=== PATIENT | male | born 1960 | race Caucasian/White ===

== ENCOUNTER 2018-01-23 13:47 | Emergency (ER) | payer OTHER ==
[2018-01-23] MEDS ORDERED: ALBUTEROL 2.5 MG/3 ML NEB SOL ONE (15:32)
[2018-01-23] MEDS ORDERED: IPRATROPIUM BROM 0.5MG/2.5ML ONE (15:32)
[2018-01-23] MEDS ORDERED: predniSONE 20 MG TAB ONE (15:33)
--- NOTE | 2018-01-23 16:11 | ER ---
Nurse's Notes [facility] Name: Dread Rose Age: 57 yrs Sex: Male : 1960 Arrival Date: 01/23/2018 Time: 13:54 Bed 27 Private MD: Diagnosis: Chronic obstructive pulmonary disease, unspecified Presentation: 01/23 13:58 Presenting complaint: Patient states: "I have COPD and really bad scoliosis so I always hb feel short of breath, I do not feel any worse than I normally do, but my family made me come because they think I look half .". Transition of care: patient was not received from another setting of care. Onset of symptoms is unknown. Care prior to arrival: None. 13:58 Method Of Arrival: Ambulatory hb 13:58 Acuity: MORELIA 3 hb 15:02 Initial Sepsis Screen: Does the patient meet any 2 criteria? No. Patient's initial kr2 sepsis screen is negative. Does the patient have a suspected source of infection? No. Patient's initial sepsis screen is negative. Triage Assessment: 15:05 General: Appears in no apparent distress. comfortable, well developed, well nourished, kr2 Behavior is calm, cooperative, appropriate for age. Respiratory: Reports shortness of breath on exertion Onset: The symptoms/episode began/occurred at an unknown time. the patient has mild shortness of breath. Historical: - Allergies: 14:00 No Known Drug Allergies; hb - PMHx: 14:00 COPD; scoliosis; hb - PSHx: 14:00 back surgery; neck surgery; splenectomy; hb - Immunization history:: Adult Immunizations up to date. - Social history:: Smoking status: Patient uses tobacco products, smokes one-half pack cigarettes per day. Screenin:05 Abuse screen: Denies threats or abuse. Denies injuries from another. Nutritional kr2 screening: No deficits noted. Tuberculosis screening: No symptoms or risk factors identified. Fall Risk None identified. Assessment: 15:05 General: Appears in no apparent distress. comfortable, unkempt, well developed, well kr2 nourished, Behavior is calm, cooperative, appropriate for age. Pain: Denies pain. Neuro: Level of Consciousness is awake, alert, obeys commands, Oriented to person, place, time, situation, Appropriate for age. Cardiovascular: Rhythm is regular. Respiratory: Airway is patent Respiratory effort is even, unlabored, Respiratory pattern is regular, symmetrical, Breath sounds are clear bilaterally. Parent/caregiver reports the patient having shortness of breath on exertion that "is not out of the ordinary, "I have COPD". GI: Abdomen is flat, non-distended, Bowel sounds present X 4 quads. EENT: Oral mucosa is moist. Derm: Skin is intact, Skin is pink, warm \\T\\ dry. Musculoskeletal: Circulation, motion, and sensation intact. Vital Signs: 13:56 BP 121 / 85; Pulse 88; Resp 18; Temp 97.4(TE); Pulse Ox 96% on R/A; Weight 68.04 kg; hb Height 6 ft. (182.88 cm); Pain 10/10; 16:23 BP 114 / 75; Pulse 75; Resp 18; Pulse Ox 96% on R/A; kr2 13:56 Body Mass Index 20.34 (68.04 kg, 182.88 cm) hb ED Course: 13:54 Patient arrived in ED. na 13:59 Triage completed. hb 14:00 Arm band placed on left wrist. hb 15:02 Janet Martinez, LI is Primary Nurse. kr2 15:03 Gianni Ni NP is PHCP. pm1 15:03 Nash Stanley MD is Attending Physician. pm1 15:05 Patient has correct armband on for positive identification. Bed in low position. Call kr2 light in reach. Side rails up X 1. Pulse ox on. NIBP on. Door closed. Warm blanket given. Head of bed elevated. 16:21 No provider procedures requiring assistance completed. Patient did not have IV access kr2 during this emergency room visit. Administered Medications: 15:35 Drug: Albuterol 2.5 mg Route: Inhalation; kr2 16:24 Follow up: Response: No adverse reaction; Marked relief of symptoms kr2 15:35 Drug: AtroVENT Aerosol 0.5 mg Route: Inhalation; kr2 16:24 Follow up: Response: No adverse reaction; Marked relief of symptoms kr2 15:35 Drug: predniSONE 60 mg Route: PO; kr2 16:24 Follow up: Response: No adverse reaction kr2 Outcome: 16:10 Discharge ordered by . pm1 16:22 Discharged to home ambulatory. kr2 16:22 Condition: stable 16:22 Discharge instructions given to patient, family, Instructed on discharge instructions, follow up and referral plans. medication usage, Demonstrated understanding of instructions, follow-up care, medications, Prescriptions given X 2. 16:24 Patient left the ED. kr2 Signatures: Ruth Perez Patrick, NP TRANSFER MACHINE OPERATOR pm1 Toña Little, RN RN Janet Martinez RN RN kr2
--- NOTE | 2018-01-23 16:11 | EDPHYS ---
Physician Documentation [facility] Name: Dread Rose Age: 57 yrs Sex: Male : 1960 Arrival Date: 01/23/2018 Time: 13:54 Bed 27 Private MD: ED Physician Nash Stanley HPI: 01/23 16:00 This 57 yrs old Male presents to ER via Ambulatory with complaints of pm1 Shortness Of Breath. 16:00 Patient is here for medications refills. He has a history of COPD. Patient is not pm1 having any shortness of breath that is any different than his baseline. No chest pain. No productive cough. No fever. He came here to the ER because his family wanted him to be evaluated for his COPD because he has not gone to a doctor in multiple years. He has not taken any medications for the past 4 years. He used to take albuterol, Advair, hydrocodone, meloxicam, dicyclomine, and Elavil.. Historical: - Allergies: 14:00 No Known Drug Allergies; hb - PMHx: 14:00 COPD; scoliosis; hb - PSHx: 14:00 back surgery; neck surgery; splenectomy; hb - Immunization history:: Adult Immunizations up to date. - Social history:: Smoking status: Patient uses tobacco products, smokes one-half pack cigarettes per day. ROS: 16:00 Constitutional: Negative for fever, chills, and weight loss, Eyes: Negative for injury, pm1 pain, redness, and discharge, ENT: Negative for injury, pain, and discharge, Neck: Negative for injury, pain, and swelling, Cardiovascular: Negative for chest pain, palpitations, and edema, Abdomen/GI: Negative for abdominal pain, nausea, vomiting, diarrhea, and constipation. 16:00 Back: Negative for injury and pain, : Negative for injury, bleeding, discharge, and swelling, MS/Extremity: Negative for injury and deformity, Skin: Negative for injury, rash, and discoloration, Neuro: Negative for headache, weakness, numbness, tingling, and seizure. 16:00 Respiratory: Positive for SOB no change from his baseline, Negative for sputum production, wheezing. Exam: 16:00 Constitutional: This is a well developed, well nourished patient who is awake, alert, pm1 and in no acute distress. Head/Face: Normocephalic, atraumatic. Eyes: Pupils equal round and reactive to light, extra-ocular motions intact. Lids and lashes normal. Conjunctiva and sclera are non-icteric and not injected. Cornea within normal limits. Periorbital areas with no swelling, redness, or edema. ENT: Nares patent. No nasal discharge, no septal abnormalities noted. Tympanic membranes are normal and external auditory canals are clear. Oropharynx with no redness, swelling, or masses, exudates, or evidence of obstruction, uvula midline. Mucous membranes moist. Neck: Trachea midline, no thyromegaly or masses palpated, and no cervical lymphadenopathy. Supple, full range of motion without nuchal rigidity, or vertebral point tenderness. No Meningismus. Chest/axilla: Normal chest wall appearance and motion. Nontender with no deformity. No lesions are appreciated. Cardiovascular: Regular rate and rhythm with a normal S1 and S2. No gallops, murmurs, or rubs. No pulse deficits. 16:00 Abdomen/GI: Soft, non-tender, with normal bowel sounds. No distension or tympany. No guarding or rebound. No evidence of tenderness throughout. Back: No spinal tenderness. No costovertebral tenderness. Full range of motion. Skin: Warm, dry with normal turgor. Normal color with no rashes, no lesions, and no evidence of cellulitis. MS/ Extremity: Pulses equal, no cyanosis. Neurovascular intact. Full, normal range of motion. 16:00 Respiratory: the patient does not display signs of respiratory distress, Respirations: normal, Breath sounds: wheezing: expiratory that is mild, is heard diffusely. 16:00 Neuro: Orientation: is normal, Mentation: is normal, Motor: moves all fours, Sensation: is normal, no obvious gross deficits, Gait: is steady, at a normal pace, without difficulty. Vital Signs: 13:56 BP 121 / 85; Pulse 88; Resp 18; Temp 97.4(TE); Pulse Ox 96% on R/A; Weight 68.04 kg; hb Height 6 ft. (182.88 cm); Pain 10/10; 16:23 BP 114 / 75; Pulse 75; Resp 18; Pulse Ox 96% on R/A; kr2 13:56 Body Mass Index 20.34 (68.04 kg, 182.88 cm) hb MDM: 15:22 Patient medically screened. pm1 16:09 Data reviewed: vital signs. Data interpreted: Pulse oximetry: on room air is 96 %. pm1 Interpretation: normal. 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 16:10 Medication response: albuterol nebulizer treatment(s) relieved the patient's symptoms. pm1 The patient is no longer wheezing. 16:10 Special discussion: Smoking cessation. pm1 Administered Medications: 15:35 Drug: Albuterol 2.5 mg Route: Inhalation; kr2 16:24 Follow up: Response: No adverse reaction; Marked relief of symptoms kr2 15:35 Drug: AtroVENT Aerosol 0.5 mg Route: Inhalation; kr2 16:24 Follow up: Response: No adverse reaction; Marked relief of symptoms kr2 15:35 Drug: predniSONE 60 mg Route: PO; kr2 16:24 Follow up: Response: No adverse reaction kr2 Disposition: 01/23/18 16:10 Discharged to Home. Impression: Chronic obstructive pulmonary disease, unspecified. - Condition is Stable. - Discharge Instructions: Chronic Obstructive Pulmonary Disease, How to Use an Inhaler. - Prescriptions for Prednisone 20 mg Oral Tablet - take 3 tablet by ORAL route once daily for 5 days; 15 tablet. Albuterol Sulfate 90 mcg/actuation - inhale 1-2 puff by INHALATION route every 4-6 hours; 1 Inhaler. - Medication Reconciliation Form, Thank You Letter form. - Follow up: Emergency Department; When: As needed; Reason: Worsening of condition. Follow up: Private Physician; When: 2 - 3 days; Reason: Recheck today's complaints, Continuance of care, Re-evaluation by your physician. - Problem is new. - Symptoms have improved. Addendum: 02/07/2018 19:46 Co-signature as Attending Physician, Nash Stanley MD I agree with the assessment and k dr plan of care. Signatures: Nash Stanley MD MD [facility] Gianni Ni NP NURSING COORDINATOR pm1 Toña Little RN RN Janet Martinez RN RN kr2 Corrections: (The following items were deleted from the chart) 01/23 16:24 16:10 01/23/2018 16:10 Discharged to Home. Impression: Chronic obstructive pulmonary kr2 disease, unspecified. Condition is Stable. Forms are Medication Reconciliation Form, Thank You Letter, Antibiotic Education, Prescription Opioid Use. Follow up: Emergency Department; When: As needed; Reason: Worsening of condition. Follow up: Private Physician; When: 2 - 3 days; Reason: Recheck today's complaints, Continuance of care, Re-evaluation by your physician. Problem is new. Symptoms have improved. pm1
[2018-01-23 16:39] VITALS: TEMP 97.4; O2SAT 96
[2018-01-23 16:40] VITALS: BP 114/75
== END 2018-01-23 16:24 | disposition home or self-care (01) ==
LOC: ER 13:47
DX: J44.9 Chronic obstructive pulmonary disease, unspecified (principal)
CPT/HCPCS: 99284; J7512

== ENCOUNTER 2021-01-15 17:20 | Emergency (ER) | payer SELFPAY ==
--- OUTSIDE RECORDS SUMMARY | 2021-01-15 17:23 | XMS REPORT | Continuity of Care Document ---
:1960 Author Organization [facility] t Address [address] [place] [address] Care Team Providers Name Role Phone Morrell DO Attending Clinician Doctor Unassigned, Name Attending Clinician Unavailable Problems This patient has no known problems. Allergies, Adverse Reactions, Alerts This patient has no known allergies or adverse reactions. Medications This patient has no known medications. Procedures This patient has no known procedures. Encounters Start End Encounter Admission Attending Care Care Encounter Source Date/Time Date/Time Type Type Clinicians Facility Department ID 2019-06-22 2019-06-22 Emergency Singer [facility] [id number] 19:04:28 22:43:00 Edy Arredondo [id number] [place] [id number] [place] [id number] 2019-06-22 2019-06-22 Orders Doctor ARCHU[place] [id number] 00:00:00 00:00:00 Only UnassRAIZA farmer [id number] [place] [facility] [id number] Results This patient has no known results.
--- NOTE | 2021-01-15 19:21 | ER ---
Nurse's Notes [facility] Name: Dread Rose Age: 60 yrs Sex: Male : 1960 Arrival Date: 01/15/2021 Time: 17:27 Bed Waiting Private MD: Diagnosis: Presentation: 01/15 17:56 Chief complaint: Patient states: Itching all over, some white stuff coming out between ca1 my fingers. There are also some on the side of my head on my L holiness. Coronavirus screen: Client denies travel out of the [place] in the last 14 days. At this time, the client does not indicate any symptoms associated with coronavirus-19. Ebola Screen: Patient negative for fever greater than or equal to 101.5 degrees Fahrenheit, and additional compatible Ebola Virus Disease symptoms Patient denies exposure to infectious person. Patient denies travel to an Ebola-affected area in the 21 days before illness onset. No symptoms or risks identified at this time. Initial Sepsis Screen: Does the patient meet any 2 criteria? No. Patient's initial sepsis screen is negative. Does the patient have a suspected source of infection? No. Patient's initial sepsis screen is negative. Risk Assessment: Do you want to hurt yourself or someone else? Patient reports no desire to harm self or others. Onset of symptoms was January 15, 2021. 17:56 Method Of Arrival: Ambulatory ca1 17:56 Acuity: MORELIA 4 ca1 19:20 Note Called over the phone, no answer. ca1 Historical: - Allergies: 18:01 No Known Allergies; ca1 - Home Meds: 18:01 None [Active]; ca1 - PMHx: 18:01 COPD; scoliosis; ca1 - PSHx: 18:01 back surgery; neck surgery; splenectomy; ca1 - Immunization history:: Flu vaccine is not up to date. - Social history:: Smoking status: Patient reports the use of cigarette tobacco products, smokes one pack cigarettes per day. Vital Signs: 17:56 BP 125 / 80; Pulse 87; Resp 16 S; Temp 97.7(TE); Pulse Ox 98% on R/A; Weight 63.5 kg ca1 (R); Height 6 ft. 0 in. (182.88 cm) (R); 17:56 Body Mass Index 18.99 (63.50 kg, 182.88 cm) ca1 ED Course: 17:27 Patient arrived in ED. am2 18:00 Triage completed. ca1 18:01 Arm band placed on right wrist. ca1 19:20 Patient's name was called from ER lobby. No response. Unable to locate patient. Will ca1 disposition as left without being seen by a provider. Administered Medications: No medications were administered Outcome: 19:21 Patient left the ED. ca1 Signatures: Michelle Rivera am2 Yeni Taylor RN RN ca1
[2021-01-15 19:34] VITALS: BP 125/80; TEMP 97.7; O2SAT 98
== END 2021-01-15 19:21 | disposition left against medical advice (07) ==
LOC: ER 17:20
DX: Z53.21 Procedure and treatment not carried out due to patient leaving prior to being seen by health care provider (principal)
CPT/HCPCS: 99281

== ENCOUNTER 2022-08-12 14:54 | Emergency (ER) | payer SELFPAY ==
--- OUTSIDE RECORDS SUMMARY | 2022-08-12 14:57 | XMS REPORT | Continuity of Care Document ---
:1960 Author Organization [facility] t Address [address] [place] [address] Care Team Providers Name Role Phone Edy Morrell DO Attending Clinician Doctor Unassigned, [place] Attending Clinician Unavailable Payers Payer Name Policy Type Policy Number Effective Date Expiration Date S ource Problems Condition Condition Condition Status Onset Resolution Last Treating Co mments Source Name Details Category Date Date Treatment Clinician Date Hiatal Hiatal Disease Active Univers hernia hernia 4-05 ity of 00:00: [place] [address] [facility] Umbilical Umbilical Disease Active Uni vers hernia hernia 4-05 ity of 00:00: [place] [address] [facility] [place] Disease Active Univers esophagus esophagus 4-05 ity of 00:00: [address] Allergies, Adverse Reactions, Alerts This patient has no known allergies or adverse reactions. Social History Social Habit Start Date Stop Date Quantity Comments Source Sex Assigned At Uni versity [facility] Smoking Status Start Date Stop Date Source Unknown if ever smoked Universit y [facility] Medications Ordered Filled Start Stop Current Ordering Indication Dosage Frequency Signature Comments Components Source Medication Medication Date Date Medication? Clinician (SIG) Name Name iohexol 2018- 2019- No 120mL 120 mL, Unive rs (OMNIPAQUE 06-23 Intravenou it y of 350 01:55: 01:55 s, ONCE, 1 [place] BULK-150 00 :00 dose, Tue Medica l mL) 06/22/19 at Branch injection 2115, 120 mL Routine buPROPion 2019- No [id number] Take 1 Univers HCl, 9-17 11-20 tablet by ity of smoking 00:00: 05:59 mouth [place] deter, 00 :00 daily for Medical (ZYBAN) 150 3 days, Branc h mg Tb12 THEN 1 tablet 2 (two) times daily for 60 days. AMOXICILLIN Yes 1 cap bid U nivers 500 MG ORAL 7-17 for 10 ity of CAP 02:15: days [address] DIPHENHYDRA Yes 1 cap bid U nivers MINE HCL 25 7-17 for 30 ity of MG ORAL CAP 02:15: days [address] NORTRIPTYLI Yes 2 caps QPM Univers NE 50 MG 7-17 for 30 ity of ORAL CAP 02:15: days [address] OMEPRAZOLE Yes 1 cap bid Un arnav 20 MG ORAL 7-17 for 30 day ity of CPDR 02:15: [address] AMOXICILLIN Yes 1 cap bid U nivers 500 MG ORAL 7-17 for 10 ity of CAP 02:15: days [address] DIPHENHYDRA Yes 1 cap bid U nivers MINE HCL 25 7-17 for 30 ity of MG ORAL CAP 02:15: days [address] NORTRIPTYLI Yes 2 caps QPM Univers NE 50 MG 7-17 for 30 ity of ORAL CAP 02:15: days [address] OMEPRAZOLE Yes 1 cap bid Un arnav 20 MG ORAL 7-17 for 30 day ity of CPDR 02:15: [address] OMEPRAZOLE 0 Yes [id number] 2 by mouth Univers 20 MG ORAL 4-05 two times ity of CPDR 00:00: a day [address] OMEPRAZOLE 0 Yes [id number] 2 by mouth Univers 20 MG ORAL 4-05 two times ity of CPDR 00:00: a day [address] Vital Signs Vital Name Observation Time Observation Value Comments Source Systolic blood 2019-06-23 03:00:00 125 mm[Hg] Univer sity of pressure [facility] Diastolic blood 2019-06-23 03:00:00 76 mm[Hg] Unive rsity of pressure [facility] Heart rate 2019-06-23 03:00:00 75 /min [facility] [place] [facility] Respiratory rate 2019-06-23 03:00:00 22 /min [facility] Oxygen saturation in 2019-06-23 02:24:00 97 /min University of Arterial blood by [facility] Pulse oximetry Branch Body temperature 2019-06-23 00:02:00 36.67 Jenae [facility] Body height 2019-06-23 00:02:00 182.9 cm Universi [facility] Body weight 2019-06-23 00:02:00 61.236 kg [facility] BMI 2019-06-23 00:02:00 18.31 kg/m2 [facility] Systolic blood 2019-06-23 03:00:00 125 mm[facility]Hg[facility] Diastolic blood 2019-06-23 03:00:00 76 [facility]Hg[facility] 2019-06-23 03:00:00 75 /min [facility] Respiratory rate 2019-06-23 03:00:00 22 /min [facility] Oxygen saturation in 2019-06-23 02:24:00 97 /min University of Arterial blood by [facility] Pulse oximetry Branch Body temperature 2019-06-23 00:02:00 36.67 Jenae [facility] Body height 2019-06-23 00:02:00 182.9 cm [facility] Body weight 2019-06-23 00:02:00 61.236 kg [facility] BMI 2019-06-23 00:02:00 18.31 kg/m2 [facility] Procedures Procedure Date / Time Performing Clinician Source Performed CT CHEST PULMONARY 2019-06-23 02:03:53 Edy Morrell [facility] ANGIOGRAM Medical Branch XR CHEST 1 VW 2019-06-23 01:36:57 Edy Morrell [facility] CT HEAD WO CONTRAST 2019-06-23 01:36:24 Edy Morrell [facility] TROPONIN I 2019-06-23 01:05:[address] [facility] [place] COMP. METABOLIC PANEL 2019-06-23 01:05:00 Edy Morrell [facility] ([id number]) [facility] CBC WITH DIFFERENTIAL 2019-06-23 01:05:00 Edy Morrell sity of [facility] D-DIMER 2019-06-23 01:05:[address] [facility] LIPASE 2019-06-23 01:05:[address] [facility] MAGNESIUM 2019-06-23 01:05:[address] [facility] EKG-12 LEAD 2019-06-23 01:02:[address] [facility] CONSENT/REFUSAL FOR 2019-06-22 23:53:56 Doctor Unassigned, No Un iversity of [place] DIAGNOSIS AND TREATMENT Name [facility] Encounters Start End Encounter Admission Attending Care Care Encounter Source Date/Time Date/Time Type Type Clinicians Facility Department ID 2019-06-22 2019-06-22 [id number] 19:04:28 22:43:00 Edy Arredondo [id number] [place] 4.2.7.2.686 [place] [id number] [facility] 2019-06-22 2019-06-22 [facility] [id number] [facility] 19:04:28 22:43:00 Edy Arredondo [id number] i ty of [place] 4.2.7.2.686 [facility] [id number] [facility] 084 Branch 2019-06-22 2019-06-22 Orders Doctor ARCHULETA [id number] 00:00:00 00:00:00 Only UnassignedRAIZA 350.1.13.10 [place] [facility] [id number] 2019-06-22 2019-06-22 Orders Doctor ARCHULETA [id number] Univers 00:00:00 00:00:00 Only UnassignedRAIZA 350.1.13.10 ity of [place] [facility] 4.2.7.2.686 [facility] [id number] [facility] 009 Branch Results Test Test Test Results Result Source Description Time Comments Comments CT CHEST 2019-06-06.?No acute pulmonary Un iversity of PULMONARY 18 embolism 2.?Mild [place] [facility] ANGIOGRAM 03:17:00 lobe predominant Branch pulmonary emphysema. 3.?Severe dextroscoliosis with uncomplicated stabilization hardware. Noacute osseous abnormality. Hosea Bartlett?MD Ritesh., have reviewed this study and agree withthe above report.PROCEDURE: CT ANGIO CHEST WITH CONTRAST - PE PROTOCOL CLINICAL INDICATION: PE suspected, intermediate prob, positive D-dimer? COMPARISON: Same day chest radiograph TECHNIQUE:?Helical CT was performed and reconstructed at 1.25 mm slicethickness from lung base to apices after the administration of 120 mLOmnipaque-350 intravenous contrast, without complication.?Display field ofview: 40 cm. FINDINGS: PULMONARY ARTERIES:Enhancement is adequate, and there is no acute or chronic pulmonaryembolism. CHEST:Lower neck/thyroid: Unremarkable. Lungs and pleura: Right greater than left apical paraseptal emphysematouslucencies. Additional paraseptal edematous lucencies are identifiedadjacent to the mediastinum in the anterior bilateral upper lobes, and inthe medial lower lobes. Additional subcentimeter thin-walled pulmonarycysts are scattered throughout the right lung. The largest cyst measures0.9 cm in the right lower lobe (5:87). The lungs are clear without focal consolidation. Scattered subsegmentallinear atelectasis is noted. Right apical pleural thickening is seen. Nopneumothorax. Central airway: No significant bronchial cuffing/thickening or mucusplugging. Thoracic aorta and great vessels: The thoracic aorta is torturous, butnormal in diameter. The conventional three-vessel branching pattern ispresent. Trace arch calcifications result in no significant luminalnarrowing. Heart and pericardium: Minimal scattered right coronary and left anteriordescending arterial calcifications. No pericardial effusion. Lymph nodes: No enlarged thoracic lymph nodes. Mediastinum: Unremarkable. Thoracic spine and chest wall: There is severe dextroscoliosis withstabilization hardware extending from T3-T12. No acute hardwarecomplication is identified. No acute compression deformity or rib fractureis visualized. A subcentimeter sclerotic lesion in T11 vertebral body(5:146) likely represents a bone island. A similar appearing lesion in theanterior T8 vertebral body (5:104) may also represent a bone island. Nosuspicious sclerotic or lytic osseous lesion. Visualized upper abdomen: Unremarkable. [facility], Radiant Results Inft User - 06/22/2019 10:17 PM CDTPROCEDURE: CT ANGIO CHEST WITH CONTRAST - PE PROTOCOLCLINICAL INDICATION: PE suspected, intermediate prob, positive D-dimer COMPARISON: Same day chest radiographTECHNIQUE: Helical CT was performed and reconstructed at 1.25 mm slicethickness from lung base to apices after the administration of 120 mLOmnipaque-350 intravenous contrast, without complication. Display field ofview: 40 cm.FINDINGS:PULMONARY ARTERIES:Enhancement is adequate, and there is no acute or chronic pulmonaryembolism.CHEST: Lower neck/thyroid: Unremarkable.Lungs and pleura: Right greater than left apical paraseptal emphysematouslucencies. Additional paraseptal edematous lucencies are identifiedadjacent to the mediastinum in the anterior bilateral upper lobes, and inthe medial lower lobes. Additional subcentimeter thin-walled pulmonarycysts are scattered throughout the right lung. The largest cyst measures0.9 cm in the right lower lobe (5:87). The lungs are clear without focal consolidation. Scattered subsegmentallinear atelectasis is noted. Right apical pleural thickening is seen. Nopneumothorax.Central airway: No significant bronchial cuffing/thickening or mucusplugging.Thoracic aorta and great vessels: The thoracic aorta is torturous, butnormal in diameter. The conventional three-vessel branching pattern ispresent. Trace arch calcifications result in no significant luminalnarrowing.Heart and pericardium: Minimal scattered right coronary and left anteriordescending arterial calcifications. No pericardial effusion.Lymph nodes: No enlarged thoracic lymph nodes.Mediastinum: Unremarkable.Thoracic spine and chest wall: There is severe dextroscoliosis withstabilization hardware extending from T3-T12. No acute hardwarecomplication is identified. No acute compression deformity or rib fractureis visualized. A subcentimeter sclerotic lesion in T11 vertebral body(5:146) likely represents a bone island. A similar appearing lesion in theanterior T8 vertebral body (5:104) may also represent a bone island. Nosuspicious sclerotic or lytic osseous lesion.Visualized upper abdomen: Unremarkable. IMPR ESSION1. No acute pulmonary embolism2. Mild upper lobe predominant pulmonary emphysema.3. Severe dextroscoliosis with uncomplicated stabilization hardware. Noacute osseous abnormality. IHosea MD., have reviewed this study and agree withthe above report. CT HEAD WO 2019-06- No acute intracranial Un iversity of CONTRAST 18 abnormality. I, Pineda S [facility] 01:58:50 MD Richard., [facility] reviewed this study and agree with the abovereport.EXAM: CT HEAD WO CONTRAST HISTORY: 58-year-old male with left upper extremity numbness. Neurodeficit(s), subacute TECHNIQUE: Spiral CT examination of the head was obtained. Sagittal andcoronal reformats were generated. COMPARISON: CT head on 04/20/2019 FINDINGS: The ventricles and cerebral sulci are normal in caliber and configuration.No hydrocephalus, midline shift or pathological extra-axial fluidcollection is present. The basal cisterns are unremarkable. There is no acute intracranial hemorrhage or significant mass effect. Noparenchymal attenuation abnormality. The quinn-white matter differentiationis preserved. The mastoid air cells and paranasal air sinuses are clear. The calvarium and central skull base are unremarkable. [facility], Radiant Results Inft User - 06/22/2019 8:58 PM CDTEXAM: CT HEAD WO CONTRASTHISTORY: 58-year-old male with left upper extremity numbness. Neurodeficit(s), subacute TECHNIQUE: Spiral CT examination of the head was obtained. Sagittal andcoronal reformats were generated.COMPARISON: CT head on 04/20/2019FINDINGS:The ventricles and cerebral sulci are normal in caliber and configuration.No hydrocephalus, midline shift or pathological extra-axial fluidcollection is present. The basal cisterns are unremarkable.There is no acute intracranial hemorrhage or significant mass effect. Noparenchymal attenuation abnormality. The quinn-white matter differentiationis preserved.The mastoid air cells and paranasal air sinuses are clear. The calvarium and central skull base are unremarkable.IMPRESSIONN o acute intracranial abnormality.IPineda MD., have reviewed this study and agree with the abovereport. XR CHEST 1 VW 2019-06- No acute cardiopulmonary process [facility] 01:54:39 is identified. Jneny Bartlett MD., have reviewed this study and agree withthe above report. EXAM: XR CHEST 1 VW HISTORY: claudication COMPARISON: Chest radiograph on 04/20/2019 FINDINGS: The lungs are clear. No pleural effusion or pneumothorax. The heart size is normal. No acute osseous abnormality is identified. There is severe dextroscoliosisof the thoracic spine with stabilization hardware in unchanged position. [facility], Radiant Results Inft User - 06/22/2019 8:54 PM CDTEXAM: XR CHEST 1 VWHISTORY: claudication COMPARISON: Chest radiograph on 04/20/2019FINDINGS:The lungs are clear. No pleural effusion or pneumothorax. The heart size is normal. No acute osseous abnormality is identified. There is severe dextroscoliosisof the thoracic spine with stabilization hardware in unchanged position.IMPRESSIONNo acute cardiopulmonary process is identified.Hosea Bartlett MD., have reviewed this study and agree withthe above report. TROPONIN I 2019-06-23 01:40:00 Test Item Value Reference Range Interpretation Comme nts TROPONIN I (test code = 0.003 ng/mL See_Comment [Au tomated message] The [id number]) system which iZoca nerated this result tra nsmitted reference range : <=0.034. The reference r elizabeth was not used to int erpret this result as normal/abnormal . DAIANA (test code = DAIANA) Equal or Less than 0.034 ng/ml---Normal?Note: Cardiac troponin begins to rise 3-4 hours after the onset of ischemia. Repeat in 4-6 hours if the sample was drawn within 3-4 hours of the onset of the symptom and found normal. Between 0.035 and 0.120 ng/mL--- Borderline. Questionable myocardial injury or necrosis?Note: Serial measurement may be necessary to confirm or exclude the diagnosis of myocardial injury or necrosis; Clinical correlation (symptoms, EKGs, imaging studies, and others) required; Repeat in 4-6 hours if clinically indicated.? Equal or Higher than 0.121 ng/mL---Abnormal. Myocardial Injury or Necrosis Likely? Biotin has been reported to cause a negative bias, interpret results relative to patient's use of biotin.? ? Lab Interpretation (test Normal code = 68316-6) [facility]. METABOLIC PANEL (55278)2019-06-23 01:29:00 Test Item Value Reference Range Interpretation Comments NA (test code = 138 mmol/L 135-145 3338024116) K (test code = 3.8 mmol/L 3.5-5 4448940153) CL (test code = 103 mmol/L 98-108 0888116060) CO2 TOTAL (test code = 26 mmol/L 23-31 0848211093) AGAP (test code = 2-16 6347808709) BUN (test code = 14 mg/dL 7-23 2692511761) GLUCOSE (test code = 101 mg/dL 70-110 7174863656) CREATININE (test code = 0.79 mg/dL 0.6-1.25 4323247155) TOTAL BILI (test code = 0.7 mg/dL 0.1-1.1 7122463767) CALCIUM (test code = 9.6 mg/dL 8.6-10.6 3600807233) T PROTEIN (test code = 7.7 g/dL 6.3-8.2 0975334012) ALBUMIN (test code = 4.3 g/dL 3.5-5 7841390400) ALK PHOS (test code = 60 U/L 34-122 9490852531) ALT(SGPT) (test code = 70 U/L 9-51 H 7435090208) AST(SGOT) (test code = 70 U/L 13-40 H 4651807154) eGFR Calculation mL/min/1.73m2 (Non-) (test code = 6482419433) eGFR Calculation mL/min/1.73m2 () (test code = 5426690459) DAIANA (test code = DAIANA) Association of Glomerular Filtration Rate (GFR) and Staging of Kidney Disease*+ + + +| GFR (mL/min/1.73 m2)?| With Kidney Damage?|?Without Kidney Damage+ --------+ --------+ +|?>90?|?S tage one?|? Normal?+ ---------+ ---------+ +|?60-89? |?Stage two?|? Decreased GFR? + --+ --+ ------+|?30-59??|?Stag e three?|? Stage three? + --+ --+ ------+|?15-29?|?Stage four? |? Stage four?+ -------+ -------+ +|?<15 (or dialysis)?|?Stage five? |? Stage five?+ -------+ -------+ +*Each stage assumes the associated GFR level has been in effect for at least three months.?Stages 1 to 5, with or without kidney disease, indicate chronic kidney disease.Notes: Determination of stages one and two (with eGFR >59mL/min/1.73 m2) requires estimation of kidney damage for at least three months as defined by structural or functional abnormalities of the kidney, manifested by either:Pathological abnormalities or Markers of kidney damage (including abnormalities in the composition of the blood or urine or abnormalities in imaging tests). Lab Interpretation Abnormal (test code = 96831-6) [facility] Test Item Value Reference Range Interpretation Comments LIPASE (test code = 6768943634) 164 U/L 0-220 Lab Interpretation (test code = Normal 52479-1) [facility]00 Test Item Value Reference Range Interpretation Comments MAGNESIUM (test code = 5038010326) 1.8 mg/dL 1.7-2.4 Lab Interpretation (test code = Normal 21691-6) [id number] 01:23:00 Test Item Value Reference Interpretation Comments Range D-DIMER (test code = See_Comment H [Autom ated 6514751954) message] The system which generated this result transmitted reference range : <0.41 ?g/mL (FEU). The reference range was not used to interpret this result as normal/abnormal . DAIANA (test code = This test may be DAIANA) used in conjunction with a clinical pretest probability (PTP) assessment model to exclude venous thromboembolism (VTE) in patients suspected of deep venous thrombosis (DVT) and pulmonary embolism (PE) A D-Dimer value less than 0.50 ?g/ml (FEU) has a negative predicative value of 96 to 100% (95% CI)and 97 to 100% (95% CI) as an aid in the diagnosis of deep vein thrombosis (DVT) and pulmonary embolism when there is low or moderate pretest probability of PE or DVT. D-Dimer values are expressed in initial fibrinogen equivalent units (FEU)"The assay results should be used with other information, including the clinical context, in forming a diagnosis. Lab Interpretation Abnormal (test code = 33536-8) [facility] WITH [id number] 01:16:00 Test Item Value Reference Range Interpretation Comments WBC (test code = See_Comment [Automated 9890-2) message] The sy stem which generated this result transmitted reference range : 4.20 - 10.70 10*3/?L. The reference range was not used to interpret this result as normal/abnormal . RBC (test code = See_Comment L [Automated 789-8) message] The sy stem which generated this result transmitted reference range : 4.26 - 5.52 10*6/?L. The reference range was not used to interpret this result as normal/abnormal . HGB (test code = 13.9 g/dL 12.2-16.4 718-7) HCT (test code = 41.2 % 38.4-49.3 4544-3) MCV (test code = 99.3 fL 81.7-95.6 H 787-2) MCH (test code = 33.5 pg 26.1-32.7 H 785-6) MCHC (test code = 33.7 g/dL 31.2-35 786-4) RDW-SD (test code = 48.5 fL 38.5-51.6 86370-3) RDW-CV (test code = 13.1 % 12.1-15.4 788-0) PLT (test code = See_Comment [Automated 777-3) message] The sy stem which generated this result transmitted reference range : 150 - 328 10*3/ ?L. The reference r elizabeth was not used to interpret this result as normal/abnormal . MPV (test code = 10.0 fL 9.8-13 84593-2) NRBC/100 WBC (test See_Comment [Automat ed code = 2576563953) message] The system which generated this result transmitted reference range : 0.0 - 10.0 /100 WBCs. The refer ence range was not u sed to interpret th is result as normal/abnormal . NRBC x10^3 (test code <0.01 See_Comment [Auto mated = 7216043806) message] The s ystem which generated this result transmitted reference range : 10*3/?L. The reference range was not used to interpret this result as normal/abnormal . GRAN MAT (NEUT) % 54.9 % (test code = 770-8) IMM GRAN % (test code 0.60 % = 1666253360) LYMPH % (test code = 28.4 % 736-9) MONO % (test code = 11.5 % 5905-5) EOS % (test code = 3.4 % 713-8) BASO % (test code = 1.2 % 706-2) GRAN MAT x10^3(ANC) 4.75 10*3/uL 1.99-6.95 (test code = 2214415581) IMM GRAN x10^3 (test 0.05 10*3/uL 0-0.06 code = 2732929187) LYMPH x10^3 (test code 2.45 10*3/uL 1.09-3.23 = 731-0) MONO x10^3 (test code 0.99 10*3/uL 0.36-1.02 = 742-7) EOS x10^3 (test code = 0.29 10*3/uL 0.06-0.53 711-2) BASO x10^3 (test code 0.10 10*3/uL 0.01-0.09 H = 704-7) Lab Interpretation Abnormal (test code = 13803-2) [facility]
[2022-08-12 15:22] LABS: Absolute Lymphocytes (CBC) 1.6 K/uL (0.7-4.9); Hematocrit 38.6 % (39.6-49.0); Lymphocytes % 26.7 % (15.3-44.8); MCV 94.9 fL (80-100); MPV 7.3 fL (7.6-11.3); RBC Red Blood Cell Count 4.07 M/uL (4.33-5.43)
[2022-08-12 15:33] LABS: Protime INR 1.07
--- NOTE | 2022-08-12 16:21 | RAD REPORT ---
EXAM DESCRIPTION: CT - Chest Abdomen Pelvis W Cont - 08/12/2022 3:57 pm CLINICAL HISTORY: large machinery/auger fell on torso COMPARISON: No comparisonsNo comparisons TECHNIQUE: Following dynamic enhancement using 100 milliliters nonionic IV contrast, axial imaging o f the chest, abdomen and pelvis was performed. Biphasic technique was utilized through the abdomen. Oral contrast: None. All CT scans are performed using dose optimization technique as appropriate and may include automated exposure control or mA/KV adjustment according to patient size. FINDINGS: No pulmonary contusion or acute lung parenchymal process. Numerous upper lung field subple ural bullae and blebs noted. There is apical scarring present. Soft tissue lateral aspect of the left upper lobe lingula believed to be scarring as well. Pulmonary contusion or mass lesion not suspected . No pleural effusion, pleural thickening or pneumothorax. No significant aortic or pulmonary arteria l tree finding. No mediastinal hematoma or mass. No abnormal mediastinal or hilar lymphadenopathy. No cardiomegaly or pericardial effusion. No displaced rib fractures are present and no nondisplaced rib fractures confirmed. Patient has a very pronounced right convex scoliosis. No fracture of the sternu m. Scoliosis rods are in place. The liver, spleen and pancreas show no suspicious findings. Gallbladder and biliary tree are unremark able. Gallstones can be occult on CT imaging. Symmetric renal function is seen with no mass or hydro nephrosis. No adrenal abnormalities. No dilated bowel loops or focal bowel wall thickening. No acute GI findings seen. A 3.5 cm periumbili khalif fat only ventral hernia present. Lumbar spine degenerative changes present. No acute findings of the bony pelvis. No significant vascular findings. IMPRESSION: No acute traumatic injury to the chest confirmed. No acute traumatic injury to the abdomen or pelvis.
--- NOTE | 2022-08-12 17:11 | ER ---
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 Pt denies hitting head or NV. Coronavirus screen: Vaccine status: Patient reports being unvaccinated. Ebola Screen: Patient negative for fever greater than or equal to 101.5 degrees Fahrenheit, and additional compatible Ebola Virus Disease symptoms Patient denies exposure to infectious person. Initial Sepsis Screen: Does the patient meet any 2 criteria? No. Patient's initial sepsis screen is negative. Does the patient have a suspected source of infection? No. Patient's initial sepsis screen is negative. Risk Assessment: Do you want to hurt yourself or someone else? Patient reports no desire to harm self or others. Onset of symptoms was August 12, 2022. 15:02 Method Of Arrival: EMS: [facility] vg1 15:02 Acuity: MORELIA 3 vg1 15:02 Care prior to arrival: Medication(s) given: IV Tylenol 1 g IV initiated. 20 GA, in the vg1 right hand. Triage Assessment: 15:05 General: Appears in no apparent distress. uncomfortable, Behavior is calm, cooperative. vg1 Pain: Complains of pain in back Pain currently is 3 out of 10 on a pain scale. Pain began 30 min ago. EENT: No signs and/or symptoms were reported regarding the EENT system. Neuro: Level of Consciousness is awake, alert, obeys commands, Oriented to person, place, time, situation. Cardiovascular: Patient's skin is warm and dry. Respiratory: Airway is patent Respiratory effort is even, unlabored. GI: No signs and/or symptoms were reported involving the gastrointestinal system. : No signs and/or symptoms were reported regarding the genitourinary system. Derm: Skin is pink, warm \T\ dry. Musculoskeletal: Circulation, motion, and sensation intact. Historical: - Allergies: 15:05 No Known Allergies; vg1 - Home Meds: 15:05 [place] Oral [Active]; vg1 - PMHx: 15:05 COPD; scoliosis; Arthritis; vg1 - Immunization history:: Client reports having NOT received the Covid vaccine. - Social history:: Smoking status: Patient reports the use of cigarette tobacco products, smokes 1.5 packs per day, Patient uses street drugs, Methamphetamine (Meth). - Family history:: not pertinent. - Hospitalizations: : No recent hospitalization is reported. Screenin:08 Abuse screen: Denies threats or abuse. Nutritional screening: No deficits noted. vg1 Tuberculosis screening: No symptoms or risk factors identified. Fall Risk No fall in past 12 months (0 pts). No secondary diagnosis (0 pts). IV access (20 points). Ambulatory Aid- None/Bed Rest/Nurse Assist (0 pts). Gait- Normal/Bed Rest/Wheelchair (0 pts) Mental Status- Oriented to own ability (0 pts). Total Merchant Fall Scale indicates No Risk (0-24 pts). Assessment: 15:08 Reassessment: SEE TRIAGE. vg1 16:10 Reassessment: Patient appears in no apparent distress at this time. No changes from vg1 previously documented assessment. Patient and/or family updated on plan of care and expected duration. Pain level reassessed. Patient is alert, oriented x 3, equal unlabored respirations, skin warm/dry/pink. 17:38 Reassessment: Patient appears in no apparent distress at this time. No changes from vg1 previously documented assessment. Patient and/or family updated on plan of care and expected duration. Pain level reassessed. Patient is alert, oriented x 3, equal unlabored respirations, skin warm/dry/pink. Vital Signs: 15:02 BP 125 / 81; Pulse 84; Resp 17; Temp 98.3; Pulse Ox 98% ; Weight 63.5 kg; Height 6 ft. vg1 0 in. (182.88 cm); Pain 3/10; 16:10 BP 136 / 86; Pulse 82; Resp 17; Pulse Ox 98% on R/A; vg1 17:38 BP 138 / 89; Pulse 76; Resp 16; Pulse Ox 98% on R/A; vg1 15:02 Body Mass Index 18.99 (63.50 kg, 182.88 cm) vg1 ED Course: 14:55 Patient arrived in ED. rn 14:55 Rojas Moss MD is Attending Physician. rn 15:00 Initial lab(s) drawn, by mi, sent to lab. aa5 15:02 Sarah Broussard, RN is Primary Nurse. vg1 15:05 Triage completed. vg1 15:05 Arm band placed on. vg1 15:09 Patient has correct armband on for positive identification. Bed in low position. Call vg1 light in reach. Side rails up X2. 15:59 CT Chest, Abdomen, Pelvis - W/Contrast In Process Unspecified. EDMS 17:39 No provider procedures requiring assistance completed. IV discontinued, intact, vg1 bleeding controlled, No redness/swelling at site. Pressure dressing applied. Administered Medications: No medications were administered Medication: 15:09 VIS not applicable for this client. vg1 Outcome: 17:11 Discharge ordered by . rn 17:39 Discharged to home ambulatory, with family. vg1 17:39 Condition: good 17:39 Discharge instructions given to patient, Instructed on discharge instructions, follow up and referral plans. Demonstrated understanding of instructions, follow-up care. 17:39 Patient left the ED. vg1 Signatures: Dispatcher [employer] EDIA Rojas Moss MD MD rn Calderon, Audri, RN RN Sarah Isidro, RN RN vg1 Corrections: (The following items were deleted from the chart) 15:06 15:05 Home Meds: None; vg1 vg1
--- NOTE | 2022-08-12 17:11 | EDPHYS ---
Physician Documentation [facility] Name: Dread Rose Age: 61 yrs Sex: Male : 1960 Arrival Date: 08/12/2022 Time: 14:55 Bed 5 Private MD: ED Physician Rojas Moss HPI: 08/12 17:07 This 61 yrs old Male presents to ER via EMS with complaints of Back Pain. rn 17:07 The patient presents with pain that is acute. The symptoms are located in the right rn subscapular area, right mid back and right low back. Onset: The symptoms/episode began/occurred just prior to arrival. The pain does not radiate. Associated signs and symptoms: Pertinent negatives: abdominal pain, fever, hematuria, incontinence, numbness, tingling, urinary retention, vomiting, weakness. Modifying factors: The patient symptoms are alleviated by remaining still, the patient symptoms are aggravated by movement. Severity of symptoms: At their worst the symptoms were moderate, in the emergency department the symptoms have improved. The patient has not experienced similar symptoms in the past. The patient has not recently seen a physician. Pt reports at a store, tool with auger fell onto his back while he was in a crouched position. Reports pain across his back. . Historical: - Allergies: 15:05 No Known Allergies; vg1 - Home Meds: 15:05 [place] Oral [Active]; vg1 - PMHx: 15:05 COPD; scoliosis; Arthritis; vg1 - Immunization history:: Client reports having NOT received the Covid vaccine. - Social history:: Smoking status: Patient reports the use of cigarette tobacco products, smokes 1.5 packs per day, Patient uses street drugs, Methamphetamine (Meth). - Family history:: not pertinent. - Hospitalizations: : No recent hospitalization is reported. ROS: 17:07 Constitutional: Negative for fever, chills, and weight loss, Neck: Negative for injury, rn pain, and swelling, Cardiovascular: Negative for chest pain, palpitations, and edema, Respiratory: Negative for shortness of breath, cough, wheezing, and pleuritic chest pain, Abdomen/GI: Negative for abdominal pain, nausea, vomiting, diarrhea, and constipation, Back: + mid and low back pain : Negative for injury, bleeding, discharge, and swelling, MS/Extremity: Negative for injury and deformity, Skin: Negative for injury, rash, and discoloration, Neuro: Negative for headache, weakness, numbness, tingling, and seizure. Exam: 17:07 Constitutional: This is a well developed, well nourished patient who is awake, alert, rn and in no acute distress. Head/Face: Normocephalic, atraumatic. Neck: No midline cervical tenderness Chest/axilla: Normal chest wall appearance and motion. Nontender with no deformity. No lesions are appreciated. Cardiovascular: Regular rate and rhythm. No pulse deficits. Respiratory: No increased work of breathing, no retractions or nasal flaring. Abdomen/GI: Soft, non-tender Back: No ecchymosis, no crepitus, + tenderness along mid back and into right posterior ribs. Skin: Warm, dry MS/ Extremity: Pulses equal, no cyanosis. Neuro: Awake and alert, GCS 15, oriented to person, place, time, and situation. Motor strength 5/5 in all extremities. Sensory grossly intact. Cerebellar exam normal. Vital Signs: 15:02 BP 125 / 81; Pulse 84; Resp 17; Temp 98.3; Pulse Ox 98% ; Weight 63.5 kg; Height 6 ft. vg1 0 in. (182.88 cm); Pain 3/10; 16:10 BP 136 / 86; Pulse 82; Resp 17; Pulse Ox 98% on R/A; vg1 17:38 BP 138 / 89; Pulse 76; Resp 16; Pulse Ox 98% on R/A; vg1 15:02 Body Mass Index 18.99 (63.50 kg, 182.88 cm) vg1 MDM: 14:55 Patient medically screened. rn 17:07 Differential diagnosis: Fatigue Fracture Osteoarthritis spinal injury, sprain, rn vertebral fracture, contusion, rib fracture, rib contusion. Data reviewed: vital signs, nurses notes, lab test result(s), radiologic studies, CT scan, and as a result, I will discharge patient. Counseling: I had a detailed discussion with the patient and/or guardian regarding: the historical points, exam findings, and any diagnostic results supporting the discharge/admit diagnosis, lab results, radiology results, the need for outpatient follow up, to return to the emergency department if symptoms worsen or persist or if there are any questions or concerns that arise at home. Special discussion: I discussed with the patient/guardian in detail that at this point there is no indication for admission to the hospital. It is understood, however, that if the symptoms persist or worsen the patient needs to return immediately for re-evaluation. ED course: No acute findings on CT chest/abdomen/pelvis. Will dc home with return precautions and OTC meds. . 08/12 14:56 Order name: CBC with Diff; Complete Time: 17: rn 08/12 14:56 Order name: Basic Metabolic Panel; Complete Time: 17: rn 08/12 14:56 Order name: IV Start; Complete Time: 15:08 rn 08/12 14:56 Order name: Protime (+inr); Complete Time: 17: rn 08/12 14:56 Order name: Ptt, Activated; Complete Time: 17: rn 08/12 14:56 Order name: CT Chest, Abdomen, Pelvis - W/Contrast; Complete Time: 17: rn Administered Medications: No medications were administered Disposition Summary: 08/12/22 17:11 Discharge Ordered Location: Home rn Problem: new rn Symptoms: have improved rn Condition: Stable rn Diagnosis - Contusion of right back wall of thorax rn Followup: rn - With: Private Physician - When: As needed - Reason: Recheck today's complaints, Re-evaluation by your physician Discharge Instructions: - Discharge Summary Sheet rn - Acute Back Pain, Adult rn - Contusion rn Forms: - Medication Reconciliation Form rn - Thank You Letter rn - Antibiotic hospitality internship - Prescription Opioid Use rn Signatures: Dispatcher [employer] Rojas Prince MD MD rn Garcia, Victoria RN RN vg1 Corrections: (The following items were deleted from the chart) 15:06 15:05 Home Meds: None; vg1 vg1
[2022-08-12 18:50] VITALS: TEMP 98.3; O2SAT 98
[2022-08-12 18:53] VITALS: BP 138/89
== END 2022-08-12 17:39 | disposition home or self-care (01) ==
LOC: ER 14:54
DX: S20.221A Contusion of right back wall of thorax, initial encounter (principal)
CPT/HCPCS: 36415; 71260; 74177; 80048; 85025; 85610; 85730; 99283; Q9967

== ENCOUNTER 2024-09-12 20:35 | Emergency (ER) | payer OTHER, SELFPAY ==
[2024-09-12] MEDS ORDERED: ETOMIDATE 20 MG/10 ML VIAL IV ONE (20:36)
[2024-09-12] MEDS ORDERED: ROCURONIUM 50 MG/5 ML VIAL IV ONE (20:36)
--- OUTSIDE RECORDS SUMMARY | 2024-09-12 20:37 | XMS REPORT | Continuity of Care Document ---
Author Name Unknown Address [address] [place] [address] [facility] Address [address] [place] [address] Care Team Providers Care Senior Art Director Name Role Phone Morrell DOOsmanip Attending Clinician [phone] Doctor Unassigned, [place] Attending Clinician U navailable Payers Payer Name Policy Type Policy Number Effective Date Expirati on Date Source Problems Condition Name Condition Details Condition Category Status Onset Date Resolution Date Last Treatment Date Treating Clinician Comments Source Hiatal hernia Hiatal hernia Disease Active 01-08 00:00: 00 [facility] Umbilical hernia Umbilical hernia Disease Active 01-08 00:00: 00 [facility] [place] esophagus [place] esophagus Disease Active 01-08 00:00: 00 [facility] Social History Social Habit Start Date Stop Date Quantity Comments Source Sex Assigned At [facility] Smoking Status Start Date Stop Date Source Unknown if ever smoked [facility] Medications Ordered Medication Name Filled Medication Name Start Date Stop Date Current Medication? Ordering Clinician Indication Dosage Frequency Signature (SIG) Comments Components Source iohexol (OMNIPAQUE 350 BULK-150 mL) injection 120 mL 06-23 01:55: 00 06-23 01:55 :00 No 120mL 120 mL, Intravenou s, ONCE, 1 dose, 06/22/19 at 2115, Routine [facility] buPROPion HCl, smoking deter, (ZYBAN) 150 mg Tb12 06-22 00:00: 00 08-25 05:59 :00 No [id number] Take 1 tablet by mouth daily for 3 days, THEN 1 tablet 2 (two) times daily for [address] [facility] AMOXICILLIN 500 MG ORAL CAP 04-21 02:15: 10 Yes 1 cap bid for [address] [facility] DIPHENHYDRA MINE HCL 25 MG ORAL CAP 04-21 02:15: 10 Yes 1 cap bid for [address] [facility] NORTRIPTYLI NE 50 MG ORAL CAP 04-21 02:15: 10 Yes 2 caps QPM for [address] [facility] OMEPRAZOLE 20 MG ORAL CPDR 04-21 02:15: 10 Yes 1 cap bid for [address] [facility] OMEPRAZOLE 20 MG ORAL CPDR 01-08 00:00: 00 Yes [id number] 2 by mouth two times a day [facility] Vital Signs Vital Name Observation Time Observation Value Comments S ource Systolic blood pressure 2019-06-23 03:00:00 125 mm[Hg] [facility] Diastolic blood pressure 2019-06-23 03:00:00 76 mm[Hg] [facility] Heart rate 2019-06-23 03:00:00 75 /min [facility] Respiratory rate 2019-06-23 03:00:00 22 /min [facility] Oxygen saturation in Arterial blood by Pulse oximetry 2019-06-23 02:24:00 97 /min [facility] Body temperature 2019-06-23 00:02:00 36.67 Jenae [facility] Body height 2019-06-23 00:02:00 182.9 cm [facility] Body weight 2019-06-23 00:02:00 61.236 kg [facility] BMI 2019-06-23 00:02:00 18.31 kg/m2 [facility] Systolic blood pressure 2019-06-23 03:00:00 125 mm[Hg] [facility] Diastolic blood pressure 2019-06-23 03:00:00 76 mm[Hg] [facility] Heart rate 2019-06-23 03:00:00 75 /min [facility] Respiratory rate 2019-06-23 03:00:00 22 /min [facility] Oxygen saturation in Arterial blood by Pulse oximetry 2019-06-23 02:24:00 97 /min [place] [facility] Body temperature 2019-06-23 00:02:00 36.67 Jenae [facility] Body height 2019-06-23 00:02:00 182.9 cm [facility] Body weight 2019-06-23 00:02:00 61.236 kg [facility] BMI 2019-06-23 00:02:00 18.31 kg/m2 [facility] Procedures Procedure Date / Time Performed Performing Clinician Source CT CHEST PULMONARY ANGIOGRAM 2019-06-23 02:03:53 Edy Morrell [facility] XR CHEST 1 VW 2019-06-23 01:36:57 Edy Morrell [facility] CT HEAD WO CONTRAST 2019-06-23 01:36:24 Vinicius Morrell [facility] LIPASE 2019-06-23 01:05:00 Edy Morrell [facility] MAGNESIUM 2019-06-23 01:05:00 [facility] TROPONIN I 2019-06-23 01:05:00 [facility] COMP. METABOLIC PANEL ([id number]) 2019-06-23 01:05:00 Edy Morrell [facility] CBC WITH DIFFERENTIAL 2019-06-23 01:05:00 Kasi Morrell [facility] D-DIMER 2019-06-23 01:05:00 Edy Mrorell [facility] EKG-12 LEAD 2019-06-23 01:02:22 [facility] CONSENT/REFUSAL FOR DIAGNOSIS AND TREATMENT 2019-06-22 23:53:56 Doctor Unassigned, [place] [facility] Encounters Start Date/Time End Date/Time Encounter Type Admission Type Attending Clinicians Care Facility Care Department Encounter ID Source 2019-06-22 19:04:28 2019-06-22 22:43:00 Emergency Edy Morrell [facility] [id number] 2019-06-22 19:04:28 2019-06-22 22:43:00 Emergency [facility] [id number] [facility] 2019-06-22 00:00:00 2019-06-22 00:00:00 Orders Only Doctor Unassigned, [place] [facility] [id number] 2019-06-22 00:00:00 2019-06-22 00:00:00 Orders Only Doctor Unassigned, [place] [facility] [id number] [facility] Results Test Description Test Time Test Comments Results Result Comments Source CT CHEST PULMONARY ANGIOGRAM 03:17:00 1.?No acute pulmonary embolism 2.?Mild upper lobe predominant pulmonary emphysema. 3.?Severe dextroscoliosis with uncomplicated stabilization hardware. Noacute osseous abnormality. Hosea Bartlett?MD. [facility], have reviewed this study and agree withthe [...] this study and agree withthe above report. [facility] CT HEAD WO CONTRAST 01:58:50 No acute intracranial abnormality. IPineda MD., have reviewed this study and agree [...] calvarium and central skull base are unremarkable. [facility], Radiant Results Inft User - 06/22/2019 8:58 [...] skull base are unremarkable.IMPRESSIONN o acute intracranial abnormality.Pineda Bartlett MD., have reviewed this study and agree with the abovereport. [facility] XR CHEST 1 VW 01:54:39 No acute cardiopulmonary process is identified. Delon Bartlett MD., have reviewed this study and agree withthe above report. EXAM: XR CHEST 1 VW HISTORY: claudication COMPARISON: Chest radiograph on 04/20/2019 FINDINGS: The lungs are clear. No pleural effusion or pneumothorax. The heart size is normal. No acute osseous abnormality is identified. There is severe dextroscoliosisof the thoracic spine with stabilization hardware in unchanged position. [facility], Radiant Results Inft User - 06/22/2019 8:54 PM CDTEXAM: XR CHEST 1 VWHISTORY: claudication COMPARISON: Chest radiograph on 04/20/2019FINDINGS:The lungs are clear. No pleural effusion or pneumothorax. The heart size is normal. No acute osseous abnormality is identified. There is severe dextroscoliosisof the thoracic spine with stabilization hardware in unchanged position.IMPRESSIONNo acute cardiopulmonary process is identified.I, Hosea Awad MD., have reviewed this study and agree withthe above report. [facility]OLIC PAN[facility] ([id number])2019-06-23 01:29:00* Test Item Value Reference Range Interpretation Comme nts NA (test code = 2830570261) 138 mmol/L 135-145 K (test code = 5558845031) 3.8 mmol/L 3.5-5 CL (test code = 4090709022) 103 mmol/L 98-108 CO2 TOTAL (test code = 8050510351) 26 mmol/L 23-31 AGAP (test code = 2308977959) 2-16 BUN (test code = 8228081004) 14 mg/dL 7-23 GLUCOSE (test code = 8598594146) 101 mg/dL 70-110 CREATININE (test code = 1285094286) 0.79 mg/dL 0.6-1.25 TOTAL BILI (test code = 8537118932) 0.7 mg/dL 0.1-1.1 CALCIUM (test code = 4338210426) 9.6 mg/dL 8.6-10.6 T PROTEIN (test code = 2574518032) 7.7 g/dL 6.3-8.2 ALBUMIN (test code = 1941357673) 4.3 g/dL 3.5-5 ALK PHOS (test code = 3973586329) 60 U/L 34-122 ALT(SGPT) (test code = 3362875880) 70 U/L 9-51 H AST(SGOT) (test code = 6345812191) 70 U/L 13-40 H eGFR Calculation (Non-) (test code = 2223015170) mL/min/1.73m2 eGFR Calculation () (test code = 9235240167) mL/min/1.73m2 DAIANA (test code = DAIANA) Association of [...] or abnormalities in imaging tests). Lab Interpretation (test code = 21465-3) [facility]* Test Item Value Reference Range Interpretation Comme nts LIPASE (test code = 9204832509) 164 U/L 0-220 Lab Interpretation (test cod e = 42180-2) [facility] 01:29:00* Test Item Value Reference Range Interpretation Comme nts MAGNESIUM (test code = 1408942951) 1.8 mg/dL 1.7-2.4 Lab Interpretation (test cod e = 35074-6) Normal [id number] 01:23:00* Test Item Value Reference Range Interpretation Comments D-DIMER (test code = 4128798103) See_Comment H [Automated message] The system which generated this result transmitted reference range: <0.41 ?g/mL (FEU). The reference range was not used to interpret this result as normal/abnormal. DAIANA (test code = DAIANA) This test may be used in conjunction with a clinical pretest [...] context, in forming a diagnosis. Lab Interpretation (test code = 47972-2) Abnormal [facility] WITH [id number] 01:16:00* Test Item Value Reference Range Interpretation Comme nts WBC (test code = 6690-2) See_Comment [Automated [employer] ([employer])a ge] The system which generated this result transmitted reference range: 4.20 - 10.70 10*3/?L. The reference range was not used to interpret this result as normal/abnormal. RBC (test code = 789-8) See_Comment L [Automated messa ge] The system which generated this result transmitted reference range: 4.26 - 5.52 10*6/?L. The reference range was not used to interpret this result as normal/abnormal. HGB (test code = 718-7) 13.9 g/dL 12.2-16.4 HCT (test code = 4544-3) 41.2 % 38.4-49.3 MCV (test code = 787-2) 99.3 fL 81.7-95.6 H MCH (test code = 785-6) 33.5 pg 26.1-32.7 H MCHC (test code = 786-4) 33.7 g/dL 31.2-35 RDW-SD (test code = 27761-9) 48.5 fL 38.5-51.6 RDW-CV (test code = 788-0) 13.1 % 12.1-15.4 PLT (test code = 777-3) See_Comment [Automated messa ge] The system which generated this result transmitted reference range: 150 - 328 10*3/?L. The reference range was not used to interpret this result as normal/abnormal. MPV (test code = 43493-0) 10.0 fL 9.8-13 NRBC/100 WBC (test code = 0409307378) See_Comment [Automated [employer] ssage] The system which generated this result transmitted reference range: 0.0 - 10.0 /100 WBCs. The reference range was not used to interpret this result as normal/abnormal. NRBC x10^3 (test code = 9909250431) <0.01 See_Comment [Automated messa ge] The system which generated this result transmitted reference range: 10*3/?L. The reference range was not used to interpret this result as normal/abnormal. GRAN MAT (NEUT) % (test code = 770-8) 54.9 % IMM GRAN % (test code = 2785708029) 0.60 % LYMPH % (test code = 736-9) 28.4 % MONO % (test code = 5905-5) 11.5 % EOS % (test code = 713-8) 3.4 % BASO % (test code = 706-2) 1.2 % GRAN MAT x10^3(ANC) (test code = 0918727321) 4.75 10*3/uL 1.99-6.95 IMM GRAN x10^3 (test code = 9958070879) 0.05 10*3/uL 0-0.06 LYMPH x10^3 (test code = 731-0) 2.45 10*3/uL 1.09-3.23 MONO x10^3 (test code = 742-7) 0.99 10*3/uL 0.36-1.02 EOS x10^3 (test code = 711-2) 0.29 10*3/uL 0.06-0.53 BASO x10^3 (test code = 704-7) 0.10 10*3/uL 0.01-0.09 H Lab Interpretation (test code = 23545-7) Abnormal [facility]
[2024-09-12] MEDS ORDERED: ALBUTEROL 2.5 MG/3 ML NEB SOL ONE (21:30)
[2024-09-12] MEDS ORDERED: LEVALBUTEROL 1.25 MG/3 ML NEB ONE (21:30)
[2024-09-12] MEDS ORDERED: IPRATROPIUM BROM 0.5MG/2.5ML ONE (21:30)
--- NOTE | 2024-09-12 22:03 | RAD REPORT ---
EXAM: Chest Single View HISTORY: COUGH COMPARISON: 01/15/2015 FINDINGS: LUNGS/PLEURA: Ill-defined airspace disease is present in the lung bases bilaterally. MEDIASTINUM: The mediastinal silhouette is within normal limits. CARDIAC: The cardiac silhouette is within normal limits. UPPER ABDOMEN: No significant abnormality. BONES: No acute fracture. Azeb rods in the spine. LINES/TUBES/OTHER: N/A IMPRESSION: Bibasilar airspace disease likely reflecting pneumonia.
[2024-09-12] MEDS ORDERED: CEFTRIAXONE 1000 MG/VIAL ONE (22:15)
[2024-09-12] MEDS ORDERED: METHYLPREDNISOLONE 125 MG INJ ONE (22:15)
[2024-09-12] MEDS ORDERED: NA CHLORIDE 0.9% 0 ML ONE (22:15)
[2024-09-12] MEDS ORDERED: NA CHLORIDE 0.9% 50 ML ONE (22:15)
[2024-09-12 22:51] LABS: Absolute Basophils 0.1 K/uL (0-0.5); Absolute Lymphocytes (CBC) 0.5 K/uL (0.7-4.9); Absolute Monocytes 1.3 K/uL (0.1-1.3); Basophils % 0.3 % (0-1.3); Eosinophils % 0.1 % (0-4.4); Hematocrit 42.4 % (39.6-49.0); Hemoglobin 13.5 g/dL (13.6-17.9); MCH 30.9 pg (27.0-35.0); MCHC 31.9 g/dL (32.0-36.0); MCV 96.9 fL (80-100); MPV 7.4 fL (7.6-11.3); Neutrophils % 88.6 % (41.7-73.7); Nucleated Red Blood Cells % 0.2 % (0-0); Platelets 386 thou/uL (152-406); RBC Red Blood Cell Count 4.37 M/uL (4.33-5.43); Red Cell Distribution Width 14.6 % (12.1-15.2)
[2024-09-12 22:55] LABS: PT Prothrombin Time 14.1 SECONDS (9.4-12.5); PTT, Activated Partial Thromb 30.7 SECONDS (24.3-36.9); Protime INR 1.27
[2024-09-12 23:09] LABS: Albumin 2.9 g/dL (3.4-5.0); Albumin/Globulin Ratio 0.6 (1.1-1.8); Anion Gap 9.5 mEq/L (5.0-15.0); Bilirubin Total 0.4 mg/dL (0.2-1.0); Globulin 4.7 g/dL (2.3-3.5); Potassium 4.5 mEq/L (3.5-5.1); Protein, Total 7.6 g/dL (6.4-8.2)
[2024-09-12 23:24] LABS: SARS-CoV-2 Antigen CONTROL BLUE LINE VIS/BG OK; SARS-CoV-2 Antigen Rapid Res Negative (Negative)
[2024-09-13 00:58] LABS: Band Neutrophils 32 % (0-1); Differential Total Cells Count 100; Lymphocytes 2 % (15-42); Metamyelocytes 1 % (0-0); Monocytes 11 % (0-10); Reactive Lymphocytes 1 %; Segmented Neutrophils 53 % (40-80)
[2024-09-13 00:59] LABS: Blood Morphology Comment NOT SEEN (NOT SEEN); Platelet Estimate ADEQ
[2024-09-13] MEDS ORDERED: propofoL 1,000 MG/100 ML VIAL IV ONE ×2 (03:04→07:10)
--- NOTE | 2024-09-13 03:14 | EDPHYS ---
Physician Documentation [facility] Name: Dread Rose Age: 63 yrs Sex: Male : 1960 Arrival Date: 09/12/2024 Time: 20:35 Bed 4 Private MD: ED Physician Elio Trinidad HPI: 09/12 21:03 This 63 yrs old Male presents to ER via EMS with complaints of Unresponsive, ec2 Breathing Difficulty. 21:03 Patient arrives today for shortness of breath. Patient was found unresponsive with ec2 hypoxia noted by EMS and subsequently improved on oxygen. Patient reports of shortness of breath as well as cough. Reports he is a daily pack per day smoker. No vomiting or diarrhea reported.. Historical: - Allergies: 20:56 No Known Allergies; cp4 - Home Meds: 20:56 [place] Oral [Active]; cp4 - Immunization history:: Adult Immunizations unknown. - Infectious Disease History:: Denies. - Social history:: Smoking status: unknown. ROS: 21:03 Constitutional: as per hpi ec2 Exam: 21:03 Constitutional: GEN: NAD Head: atraumatic Eyes: EOMI Ears: External ears are ec2 normal. CV: Tachycardia. LUNGS: no respiratory distress, scattered wheezes noted throughout all lung gaming. ABD: non-distended SKIN: no evidence of rashes MSK: no evidence of trauma Vital Signs: 20:49 BP 156 / 90; Pulse 117; Resp 18; Temp 97.3; Pulse Ox 97% on 15 lpm Non-rebreather mask; cp4 Pain 0/10; 12/09 00:00 BP 144 / 81; Pulse 98; Resp 27; Pulse Ox 95% on BiPAP; vc1 01:00 BP 142 / 72; Pulse 105; Resp 35; Pulse Ox 97% on BiPAP; vc1 02:43 BP 115 / 69; Pulse 97; Resp 40; Pulse Ox 94% on Non-rebreather mask; vc1 03:00 BP 91 / 60; Pulse 129; Resp 18; Pulse Ox 94% on ETT vent; vc1 03:10 Weight 63.5 kg; vc1 03:12 BP 103 / 78; Pulse 123; Resp 16; Pulse Ox 100% on ETT vent; vc1 03:28 BP 105 / 69; Pulse 115; Resp 18; Pulse Ox 100% on ETT vent; vc1 03:30 BP 104 / 68; Pulse 106; Resp 17; Pulse Ox 100% on ETT vent; vc1 04:00 BP 92 / 63; Pulse 98; Resp 16; Pulse Ox 96% on ETT vent; vc1 04:10 BP 99 / 74; Pulse 110; Resp 18; Pulse Ox 96% on ETT vent; vc1 04:30 BP 116 / 82; Pulse 122; Resp 19; Pulse Ox 93% on ETT vent; vc1 05:00 BP 57 / 41; Pulse 106; Resp 18; Pulse Ox 93% on ETT vent; vc1 05:02 BP 54 / 41; Pulse 102; Resp 14; Pulse Ox 92% on ETT vent; vc1 05:10 BP 53 / 41; Pulse 105; Resp 14; Pulse Ox 91% on ETT vent; vc1 05:20 BP 54 / 43; Pulse 104; Resp 15; Pulse Ox 92% on ETT vent; vc1 05:30 BP 56 / 44; Pulse 101; Resp 15; Pulse Ox 92% on ETT vent; vc1 05:40 BP 51 / 39; Pulse 98; Resp 16; Pulse Ox 91% on ETT vent; vc1 05:50 BP 60 / 42; Pulse 98; Resp 14; Pulse Ox 93% on ETT vent; vc1 06:00 BP 75 / 51; Pulse 98; Resp 15; Pulse Ox 94% on ETT vent; vc1 06:20 BP 111 / 72; Pulse 95; Resp 16; Pulse Ox 97% on ETT vent; vc1 06:30 BP 97 / 63; Pulse 98; Resp 16; Pulse Ox 95% on ETT vent; vc1 06:50 BP 101 / 67; Pulse 93; Resp 16; Pulse Ox 95% on ETT vent; vc1 07:00 BP 97 / 68; Pulse 96; Resp 17; Pulse Ox 94% on ETT vent; vc1 09/12 20:49 Pain Scale: Adult cp4 Procedures: 03:13 Intubation: Ventilated with 100% NRB prior to procedure. O2 saturation prior to ec2 procedure was 92 %. Intubated orally using # 3 Kip blade with 7.5 mm ETT. was successful on first attempt. Ventilated with ventilator. Tube secured with ETT love at right side of mouth Placement verified by auscultating bilateral breath sounds, O2 saturation after procedure was 99 %. Patient tolerated well. 06:36 Central Line: the site was prepped with Betadine, a triple lumen catheter was inserted, ec2 in the right femoral vein, in 1 attempts. placement was verified, by blood return, the site was dressed with Tegaderm, the patient tolerated the procedure, well. MDM: 09/12 20:54 Medical Screening Exam initiated ec2 21:03 Data reviewed: vital signs, nurses notes. ED course: Patient arrives today for ec2 evaluation of shortness of breath. Examination revealing for tachycardia and pulmonary findings as above. Will obtain lab work, EKG, chest x-ray, empirically treat with antibiotics, DuoNeb and steroids.. 22:12 ED course: EKG independently reviewed and interpreted by me, shows sinus tachycardia, ec2 rate 105, no acute ST segment elevations, intervals are nonactionable.. 23:53 ED course: Metabolic profile shows renal dysfunction with a creatinine 1.33. Lactic ec2 acid slightly elevated 2.4. Flu and COVID testing negative. CBC shows leukocytosis of 15.8. Chest x-ray shows likely pneumonia. Will admit for sepsis secondary to pneumonia. . 09/13 01:49 ED course: Discussed with hospitalist, pending admission. ec2 02:35 ED course: On reassessment patient increasingly restless, tore out his IV and removed ec2 his BiPAP. Patient is increasingly altered. Will intubate for airway protection. 03:33 ED course: Due to lack of ICU capabilities, will transfer. Patient intubated and ec2 breathing comfortably on ventilator.. 04:21 ED course: Discussed the case with ICU physician at [facility] who agrees ec2 except the patient for transfer.. 06:36 ED course: Sepsis reassessment complete. Patient with hypotensive blood pressures, ec2 subsequently started the patient on Levophed and placed central line in the right groin without issue.. 12 21:00 Order name: Blood Culture Adult (2) ec2 09/12 21:00 Order name: CBC with Diff; Complete Time: 01:11 ec2 09/12 21:00 Order name: CMP; Complete Time: 23:53 ec2 09/12 21:00 Order name: Lactate w/ 2H reflex if indic.; Complete Time: 23:53 ec2 09/12 21:00 Order name: Protime (+inr); Complete Time: 23:53 ec2 09/12 21:00 Order name: Ptt, Activated; Complete Time: 23:53 ec2 09/12 21:00 Order name: Influenza Screen (a \T\ B); Complete Time: 23:53 ec2 09/12 21:00 Order name: SARS RAPID; Complete Time: 23:53 ec2 09/12 23:04 Order name: Manual Differential; Complete Time: 01:11 EDMS 09/12 23:14 Order name: Ghost Lactate-NO COLLECT Timer; Complete Time: 01:13 EDMS 09/13 03:51 Order name: ABG ec2 09/13 05:19 Order name: Lactate Sepsis 2 HR Follow-up; Complete Time: 05:58 EDMS 09/12 21:00 Order name: Chest Single View XRAY; Complete Time: 22:42 ec2 09/13 03:06 Order name: Chest Single View XRAY sp 09/13 03:51 Order name: BIPAP ec2 09/12 21:00 Order name: Cardiac monitoring; Complete Time: 22:12 ec2 09/12 21:00 Order name: EKG - Nurse/Tech; Complete Time: 22:12 ec2 09/12 21:00 Order name: IV Saline Lock - Large Bore; Complete Time: 22:12 ec2 09/12 21:00 Order name: Labs collected and sent; Complete Time: 22:12 ec2 09/12 21:00 Order name: O2 Per Protocol; Complete Time: 22:12 ec2 09/12 21:00 Order name: O2 Sat Monitoring; Complete Time: 22:12 ec2 09/12 21:00 Order name: Vital Signs; Complete Time: 22:12 ec2 Administered Medications: 09/12 21:50 Drug: DuoNeb Nebulize (3:1) (2.5 mg - 0.5 mg) 3 ml Nebulizer once Route: Nebulizer; al5 09/13 00:00 Follow up: Response: No adverse reaction al5 09/12 22:30 Drug: Rocephin IV 1 grams IV at calculated rate once; Given slow IV push per pharmacy al5 instructions Route: IV; Rate: calculated rate; Site: right antecubital; 09/13 00:00 Follow up: Response: No adverse reaction; IV Status: Completed infusion; IV Intake: [id number] 09/12 22:30 Drug: NS 0.9% IV 1000 ml IV at 1000 ml once; to be given as a bolus over 60 minutes al5 Route: IV; Rate: 1000 ml; Site: right antecubital; 09/13 00:00 Follow up: Response: No adverse reaction; IV Status: Completed infusion; IV Intake: al5 1000ml 09/12 22:30 Drug: MethylPrednisoLONE IVP 125 mg IVP once Route: IVP; Site: right forearm; al5 09/13 00:00 Follow up: Response: No adverse reaction al5 03:01 Drug: Propofol IV 5 mcg/kg/min IV at calculated rate See Administration Instructions; al5 Standard concentration 1000 mg / 100 mL; Recommended max rate 50 mcg/kg/min; Titrate 5 mcg/kg/min every 5 minutes to achieve goal (see titration policy); Goal parameter RASS score 0 to -2 Route: IV; Rate: calculated rate; Site: right forearm; 04:06 Follow up: Response: RASS: Drowsy (-1); Rate change 15 mcg/kg/min al5 04:36 Follow up: Response: No adverse reaction; RASS: Drowsy (-1); Rate change 20 mcg/kg/min al5 04:48 Follow up: Response: No adverse reaction; RASS: Drowsy (-1); Rate change 25 mcg/kg/min al5 05:28 Follow up: Response: RASS: Deep sedation (-4); Rate change 20 mcg/kg/min al5 05:33 Follow up: Response: No adverse reaction; RASS: Drowsy (-1); Rate change 30 mcg/kg/min al5 07:26 Follow up: Response: No adverse reaction; IV Status: Infusion continued upon transfer vc1 04:35 Drug: AZITHromycin IVPB 500 mg IVPB once over 1 hrs; (mix in 250 mL NS) Route: IVPB; al5 Infused Over: 1 hrs; Site: left antecubital; 05:32 Follow up: Response: No adverse reaction; IV Status: Completed infusion; IV Intake: al5 250ml 04:35 Drug: NS 0.9% IV 1000 ml IV at 1000 ml once; to be given as a bolus over 60 minutes al5 Route: IV; Rate: 1000 ml; Site: left antecubital; 07:27 Follow up: Response: No adverse reaction; IV Status: Completed infusion; IV Intake: vc1 1000ml 04:55 Drug: Midazolam IVP or IV 0.01 mg/kg/h IV at calculated rate See Administration al5 Instructions; (Standard concentration: 100 mg / 100 mL NS); Recommended max rate 0.1 mg/kg/hr; Titrate 0.01 mg/kg/hr as often as every 30 minutes to achieve goal (see titration policy); Goal parameter RASS 0 to -2 Route: IV; Rate: calculated rate; Site: left antecubital; 05:34 Follow up: Response: No adverse reaction; RASS: Deep sedation (-4); Rate change 0.05 al5 Titrate; 0.05 mg/kg/hr 07:26 Follow up: Response: No adverse reaction; IV Status: Infusion continued upon transfer vc1 05:03 Drug: Ketamine IVP 100 mg IVP once Route: IVP; Site: left antecubital; al5 05:42 Follow up: Response: No adverse reaction; RASS: Deep sedation (-4) al5 06:18 Drug: Norepinephrine IV 0.1 mcg/kg/min IV at calculated rate See Administration vc1 Instructions; (Standard concentration 4 mg / 250 mL D5W); Recommended max rate 3 mcg/kg/min; Titrate 0.05 mcg/kg/min as often as every 5 minutes to achieve goal (see titration policy); Goal parameter MAP greater than 65 mmHg. Route: IV; Rate: calculated rate; Site: right femoral; 07:26 Follow up: Response: No adverse reaction; IV Status: Infusion continued upon transfer vc1 07:47 Not Given (Other Intervention Used): ns 0.9% 1000 ml IV at 1000 ml once; to be given as vc1 a bolus over 60 minutes Disposition: 03:13 Critical Care:. ec2 Disposition Summary: 09/13/24 03:14 Transfer Ordered Notes: Transfer Location: Other Acute Care Facility ec2 Reason: Higher level of care ec2 Condition: Stable ec2 Problem: an acute exacerbation ec2 Symptoms: have improved ec2 Accepting Physician: transferring doc(09/13/24 07:56) ll1 Diagnosis - Sepsis, unspecified organism ec2 - Unspecified bacterial pneumonia ec2 - Respiratory failure, unspecified with hypoxia ec2 Forms: - Medication Reconciliation Form ec2 - SBAR form ec2 Critical care time excluding procedures: 03:13 Critical care time: Bedside Care: 30 minutes, Consultation: 5 minutes. Total time: 35 ec2 minutes Signatures: Dispatcher [employer] Meagan Oneill, LI RN ll1 Tammie Story RN RN vc1 Elio Trinidad MD MD ec2 Karuna Liz cp4 Michelle Llamas RN RN al5 Corrections: (The following items were deleted from the chart) 09/12 20:57 20:56 PMHx: COPD; cp4 cp4 20:57 20:56 PMHx: scoliosis; cp4 cp4 20:57 20:56 PMHx: Arthritis; cp4 cp4 21:00 21:00 BLOOD CULTURE*+BA.LAB.BRZ ordered. EDMS EDMS 21:00 21:00 CBC+H.LAB.BRZ ordered. EDMS EDMS 21:00 21:00 COMPREHENSIVE METABOLIC PANEL+C.LAB.BRZ ordered. EDMS EDMS 21:00 21:00 LACTATE+C.LAB.BRZ ordered. EDMS EDMS 21:00 21:00 PROTIME (+INR)+COAG.LAB.BRZ ordered. EDMS EDMS 21:00 21:00 PTT, ACTIVATED+COAG.LAB.BRZ ordered. EDMS EDMS 21:00 21:00 Influenza Screen (A \T\ B)+BA.LAB.BRZ ordered. EDMS EDMS 21:00 21:00 SARS-COV-2 Antigen Rapid+I.LAB.BRZ ordered. EDMS EDMS 21:00 21:00 Chest Single View+RAD.RAD.BRZ ordered. EDMS EDMS 22:12 21:00 Accucheck ordered. ec2 al5 09/13 04:06 03:15 Chest Single View+RAD.RAD.BRZ ordered. EDMS EDMS 07:56 03:14 transferring doc ec2 ll1
--- NOTE | 2024-09-13 03:14 | ER ---
Nurse's Notes [facility] Name: Dread Rose Age: 63 yrs Sex: Male : 1960 Arrival Date: 09/12/2024 Time: 20:35 Bed 4 Private MD: Diagnosis: Sepsis, unspecified organism;Unspecified bacterial pneumonia;Respiratory failure, unspecified with hypoxia Presentation: 09/12 20:49 Chief complaint: EMS states: found unresponsive outside on the ground. When EMS arrived cp4 75% on RA. [facility] called for riprap placer. 86% on RA upon arrival. Patient is alert and oriented x1. Coronavirus screen: Client denies travel out of the [place] in the last 14 days. At this time, the client does not indicate any symptoms associated with coronavirus-19. Ebola Screen: Patient negative for fever greater than or equal to 101.5 degrees Fahrenheit, and additional compatible Ebola Virus Disease symptoms Patient denies exposure to infectious person. Patient denies travel to an Ebola-affected area in the 21 days before illness onset. No symptoms or risks identified at this time. Initial Sepsis Screen: Does the patient meet any 2 criteria? HR > 90 bpm. No. Patient's initial sepsis screen is negative. Does the patient have a suspected source of infection? No. Patient's initial sepsis screen is negative. Risk Assessment: Do you want to hurt yourself or someone else? Patient reports no desire to harm self or others. Onset of symptoms was September 12, 2024. 20:49 Method Of Arrival: EMS: [facility] 4 20:49 Acuity: MORELIA 2 cp4 Triage Assessment: 20:56 General: Appears distressed, uncomfortable, Behavior is calm, cooperative, appropriate cp4 for age. Pain: Denies pain. EENT: No signs and/or symptoms were reported regarding the EENT system. Neuro: Level of Consciousness is awake, alert, obeys commands, Oriented to person. Cardiovascular: Patient's skin is warm and dry. Respiratory: Reports shortness of breath at rest Airway is patent Respiratory effort is even, labored, Onset: The symptoms/episode began/occurred at an unknown time. the patient has moderate shortness of breath. GI: No signs and/or symptoms were reported involving the gastrointestinal system. : No signs and/or symptoms were reported regarding the genitourinary system. Derm: No signs and/or symptoms reported regarding the dermatologic system. Musculoskeletal: No signs and/or symptoms reported regarding the musculoskeletal system. Historical: - Allergies: 20:56 No Known Allergies; cp4 - Home Meds: 20:56 [place] Oral [Active]; cp4 - Immunization history:: Adult Immunizations unknown. - Infectious Disease History:: Denies. - Social history:: Smoking status: unknown. Screenin:59 [facility] ED Fall Risk Assessment (Adult) History of falling in the last 3 months, cp4 including since admission No falls in past 3 months (0 pts) Confusion or Disorientation Yes (5 pts) Intoxicated or Sedated No (0 pts) Impaired Gait No (0 pts) Mobility Assist Device Used No (0 pt) Altered Elimination No (0 pt) Score/Fall Risk Level 3 or more points = High Risk Oriented to surroundings, Maintained a safe environment, Assessed \T\ reinforced patient's understanding of fall precautions, Hourly rounding (assess needs \T\ fall precautionary measures) done. Abuse screen: Denies threats or abuse. Nutritional screening: No deficits noted. Tuberculosis screening: No symptoms or risk factors identified. Assessment: 20:49 Cardiovascular: Rhythm is sinus tachycardia. al5 20:49 Respiratory: Airway is patent Respiratory effort is even, labored, Respiratory pattern al5 is regular, symmetrical, agonal Pleural rub noted bilaterally. 21:50 Reassessment: No changes from previously documented assessment. Patient and/or family al5 updated on plan of care and expected duration. Pain level reassessed. patient attempted to remove himself off of the monitor and remove IV, educated patient importance of monitor and IV for medications. patient disoriented and unable to understand Patient states symptoms have not improved. 22:50 Reassessment: No changes from previously documented assessment. Patient and/or family al5 updated on plan of care and expected duration. Pain level reassessed. patient agitated and attempting remove himself off of the monitor. notified charge nurse, moved patient from room 8 to room 4. patient placed on bipap Patient states symptoms have not improved. 09/13 02:50 Reassessment: No changes from previously documented assessment. Patient and/or family al5 updated on plan of care and expected duration. Pain level reassessed. patient continuously removing himself off of the monitor and bipap machine, MD notified and aware. Patient states symptoms have not improved. 03:00 General: assisted MD with patient intubation. 20 mg Etomidate and 70 mg Rocuronium al5 given. patient intubated with 7.5 ET tube measuring 23 cm at teeth. confirmed with etco2, cxr, and auscultation. 04:00 Reassessment: Patient appears in no apparent distress at this time. Patient and/or al5 family updated on plan of care and expected duration. Pain level reassessed. patient resting comfortably at this time with sedation medications. 04:50 Reassessment: Patient and/or family updated on plan of care and expected duration. Pain al5 level reassessed. patient showing signs of agitation and restlessness. requested from MD additional order of sedation. 04:55 Reassessment: report called to cy ravi at [facility]. al5 05:03 Reassessment: No changes from previously documented assessment. additional sedation IVP al5 ordered. 05:17 Reassessment: patient sedation decreased due to bp decreasing, patient currently al5 getting fluids at this time. this nurse at bedside monitoring patient. 06:18 Reassessment: Patient appears in no apparent distress at this time. Patient and/or al5 family updated on plan of care and expected duration. Pain level reassessed. patient resting comfortably at this time with sedation medications. bp still continuing to decrease. MD notified and aware. preparing for central line insertion for vasopressor. 06:36 Reassessment: central line insertion complete without issue, triple lumen central line al5 inserted in R femoral, blood return noted in all 3 lumens. per MD, okay to use. Vital Signs: 09/12 20:49 BP 156 / 90; Pulse 117; Resp 18; Temp 97.3; Pulse Ox 97% on 15 lpm Non-rebreather mask; cp4 Pain 0/10; 09/13 00:00 BP 144 / 81; Pulse 98; Resp 27; Pulse Ox 95% on BiPAP; vc1 01:00 BP 142 / 72; Pulse 105; Resp 35; Pulse Ox 97% on BiPAP; vc1 02:43 BP 115 / 69; Pulse 97; Resp 40; Pulse Ox 94% on Non-rebreather mask; vc1 03:00 BP 91 / 60; Pulse 129; Resp 18; Pulse Ox 94% on ETT vent; vc1 03:10 Weight 63.5 kg; vc1 03:12 BP 103 / 78; Pulse 123; Resp 16; Pulse Ox 100% on ETT vent; vc1 03:28 BP 105 / 69; Pulse 115; Resp 18; Pulse Ox 100% on ETT vent; vc1 03:30 BP 104 / 68; Pulse 106; Resp 17; Pulse Ox 100% on ETT vent; vc1 04:00 BP 92 / 63; Pulse 98; Resp 16; Pulse Ox 96% on ETT vent; vc1 04:10 BP 99 / 74; Pulse 110; Resp 18; Pulse Ox 96% on ETT vent; vc1 04:30 BP 116 / 82; Pulse 122; Resp 19; Pulse Ox 93% on ETT vent; vc1 05:00 BP 57 / 41; Pulse 106; Resp 18; Pulse Ox 93% on ETT vent; vc1 05:02 BP 54 / 41; Pulse 102; Resp 14; Pulse Ox 92% on ETT vent; vc1 05:10 BP 53 / 41; Pulse 105; Resp 14; Pulse Ox 91% on ETT vent; vc1 05:20 BP 54 / 43; Pulse 104; Resp 15; Pulse Ox 92% on ETT vent; vc1 05:30 BP 56 / 44; Pulse 101; Resp 15; Pulse Ox 92% on ETT vent; vc1 05:40 BP 51 / 39; Pulse 98; Resp 16; Pulse Ox 91% on ETT vent; vc1 05:50 BP 60 / 42; Pulse 98; Resp 14; Pulse Ox 93% on ETT vent; vc1 06:00 BP 75 / 51; Pulse 98; Resp 15; Pulse Ox 94% on ETT vent; vc1 06:20 BP 111 / 72; Pulse 95; Resp 16; Pulse Ox 97% on ETT vent; vc1 06:30 BP 97 / 63; Pulse 98; Resp 16; Pulse Ox 95% on ETT vent; vc1 06:50 BP 101 / 67; Pulse 93; Resp 16; Pulse Ox 95% on ETT vent; vc1 07:00 BP 97 / 68; Pulse 96; Resp 17; Pulse Ox 94% on ETT vent; vc1 09/12 20:49 Pain Scale: Adult cp4 ED Course: 09/12 20:40 Patient arrived in ED. jj6 20:49 Karuna Liz is Primary Nurse. cp4 20:54 Elio Trinidad MD is Attending Physician. ec2 20:56 Triage completed. cp4 20:56 Arm band placed on right wrist. Patient placed in an exam room, on a stretcher. cp4 20:59 Bed in low position. Call light in reach. Side rails up X2. cp4 20:59 No provider procedures requiring assistance completed. cp4 21:41 Chest Single View XRAY In Process Unspecified. EDMS 21:50 Provided Education on: importance of monitor and IV line for medications. al5 21:59 Inserted saline lock: 22 gauge in right forearm, using aseptic technique. Blood al5 collected. Flushed with 10 mL NS. 22:12 SARS RAPID Sent. al5 22:12 Influenza Screen (a \T\ B) Sent. al5 22:12 Blood Culture Adult (2) Sent. al5 22:12 CBC with Diff Sent. al5 22:12 CMP Sent. al5 22:12 Lactate w/ 2H reflex if indic. Sent. al5 22:13 Ptt, Activated Sent. al5 22:13 Protime (+inr) Sent. al5 23:58 IV discontinued, intact, IV dc by patient. iv catheter in bed intact, no bleeding from al5 site. 09/13 02:58 Inserted saline lock: 22 gauge in right forearm, using aseptic technique. Flushed with al5 10 mL NS. 03:00 Assisted provider with intubation using 7.5 mm ETT via oral route. ET tube secured at al5 23cm at the teeth. Set up intubation tray. Intubated by Elio Trinidad MD Placement verified by CO2 detector w/ + color change, auscultating bilateral breath sounds, End-tidal CO2 montioring CXR, Patient tolerated well. 03:28 Reis cath inserted, using sterile technique, 16 Fr., by me, balloon inflated, to al5 gravity drainage, clamped. 03:55 NGT: inserted 16 Fr. other OGT INSERTED. vc1 04:08 Chest Single View XRAY In Process Unspecified. EDMS 04:37 Inserted saline lock: 20 gauge in left antecubital area, using aseptic technique. al5 Flushed with 10 mL NS. 04:37 Inserted saline lock: 22 gauge in left forearm, using aseptic technique. Flushed with al5 10 mL NS. 05:09 Elio Trinidad MD is Attending Physician. al5 05:30 Elio Trinidad MD is Attending Physician. al5 06:35 Elio Trinidad MD is Attending Physician. ec2 06:36 Assisted provider with central line placement. Set up central line tray. Triple lumen al5 line placed in right femoral. Line placed by Elio Trinidad MD Placement verified by blood return, Dressed with Tegaderm, Blood was collected. Patient tolerated well. Time-out/Briefing performed prior to start of procedure? Yes. Was handwashing/sanitizing done immediately prior to procedure? Yes. Was patient positioned to in a way to prevent air embolism? Yes. Was procedure site sterilized? Yes, with chlorhexidine. shaved hair in area due to excess hair. Was the site allowed to dry? Yes. Was local anesthetic and/or sedation utilized? Yes. During the procedure, did the Practitioner(s) maintain a sterile field? Yes. Were unused ports clamped during insertion? Yes. Was a 2nd qualified MD obtained after 3 unsuccessful insertion attempts? No. Was blood aspirated from each lumen? Yes. After the procedure, did the Practitioner(s) clean the site and apply a sterile dressing? Yes. Administered Medications: 09/12 21:50 Drug: DuoNeb Nebulize (3:1) (2.5 mg - 0.5 mg) 3 ml Nebulizer once Route: Nebulizer; al5 09/13 00:00 Follow up: Response: No adverse reaction al5 09/12 22:30 Drug: Rocephin IV 1 grams IV at calculated rate once; Given slow IV push per pharmacy al5 instructions Route: IV; Rate: calculated rate; Site: right antecubital; 09/13 00:00 Follow up: Response: No adverse reaction; IV Status: Completed infusion; IV Intake: [id number] 09/12 22:30 Drug: NS 0.9% IV 1000 ml IV at 1000 ml once; to be given as a bolus over 60 minutes al5 Route: IV; Rate: 1000 ml; Site: right antecubital; 09/13 00:00 Follow up: Response: No adverse reaction; IV Status: Completed infusion; IV Intake: al5 1000ml 09/12 22:30 Drug: MethylPrednisoLONE IVP 125 mg IVP once Route: IVP; Site: right forearm; al5 09/13 00:00 Follow up: Response: No adverse reaction al5 03:01 Drug: Propofol IV 5 mcg/kg/min IV at calculated rate See Administration Instructions; al5 Standard concentration 1000 mg / 100 mL; Recommended max rate 50 mcg/kg/min; Titrate 5 mcg/kg/min every 5 minutes to achieve goal (see titration policy); Goal parameter RASS score 0 to -2 Route: IV; Rate: calculated rate; Site: right forearm; 04:06 Follow up: Response: RASS: Drowsy (-1); Rate change 15 mcg/kg/min al5 04:36 Follow up: Response: No adverse reaction; RASS: Drowsy (-1); Rate change 20 mcg/kg/min al5 04:48 Follow up: Response: No adverse reaction; RASS: Drowsy (-1); Rate change 25 mcg/kg/min al5 05:28 Follow up: Response: RASS: Deep sedation (-4); Rate change 20 mcg/kg/min al5 05:33 Follow up: Response: No adverse reaction; RASS: Drowsy (-1); Rate change 30 mcg/kg/min al5 07:26 Follow up: Response: No adverse reaction; IV Status: Infusion continued upon transfer vc1 04:35 Drug: AZITHromycin IVPB 500 mg IVPB once over 1 hrs; (mix in 250 mL NS) Route: IVPB; al5 Infused Over: 1 hrs; Site: left antecubital; 05:32 Follow up: Response: No adverse reaction; IV Status: Completed infusion; IV Intake: al5 250ml 04:35 Drug: NS 0.9% IV 1000 ml IV at 1000 ml once; to be given as a bolus over 60 minutes al5 Route: IV; Rate: 1000 ml; Site: left antecubital; 07:27 Follow up: Response: No adverse reaction; IV Status: Completed infusion; IV Intake: vc1 1000ml 04:55 Drug: Midazolam IVP or IV 0.01 mg/kg/h IV at calculated rate See Administration al5 Instructions; (Standard concentration: 100 mg / 100 mL NS); Recommended max rate 0.1 mg/kg/hr; Titrate 0.01 mg/kg/hr as often as every 30 minutes to achieve goal (see titration policy); Goal parameter RASS 0 to -2 Route: IV; Rate: calculated rate; Site: left antecubital; 05:34 Follow up: Response: No adverse reaction; RASS: Deep sedation (-4); Rate change 0.05 al5 Titrate; 0.05 mg/kg/hr 07:26 Follow up: Response: No adverse reaction; IV Status: Infusion continued upon transfer vc1 05:03 Drug: Ketamine IVP 100 mg IVP once Route: IVP; Site: left antecubital; al5 05:42 Follow up: Response: No adverse reaction; RASS: Deep sedation (-4) al5 06:18 Drug: Norepinephrine IV 0.1 mcg/kg/min IV at calculated rate See Administration vc1 Instructions; (Standard concentration 4 mg / 250 mL D5W); Recommended max rate 3 mcg/kg/min; Titrate 0.05 mcg/kg/min as often as every 5 minutes to achieve goal (see titration policy); Goal parameter MAP greater than 65 mmHg. Route: IV; Rate: calculated rate; Site: right femoral; 07:26 Follow up: Response: No adverse reaction; IV Status: Infusion continued upon transfer vc1 07:47 Not Given (Other Intervention Used): ns 0.9% 1000 ml IV at 1000 ml once; to be given as vc1 a bolus over 60 minutes Medication: 09/12 20:59 VIS not applicable for this client. cp4 Intake: 12 00:00 IV: 1000ml; Total: 1000ml. al5 00:00 IV: 50ml; Total: 1050ml. al5 05:32 IV: 250ml; Total: 1300ml. al5 07:27 IV: 1000ml; Total: 2300ml. vc1 Outcome: 03:14 ER care complete, transfer ordered by . ec2 07:50 Transferred by [facility] ems. to [facility], [facility] [place], al5 07:50 Condition: stable al5 07:50 Instructed on the need for transfer, 07:56 Patient left the ED. ll1 Signatures: Dispatcher [employer] Meagan Oneill RN RN ll1 Randi Jacksonj6 Tammie Story RN RN vc1 Elio Trinidad MD MD ec2 Karuna Liz cp4 Langhorst, Michelle, RN RN al5 Corrections: (The following items were deleted from the chart) 09/12 20:57 20:56 PMHx: COPD; cp4 cp4 20:57 20:56 PMHx: scoliosis; cp4 cp4 20:57 20:56 PMHx: Arthritis; cp4 cp4 09/13 05:28 05:17 Response: RASS: Restless (+1); Rate change 20 mcg/kg/min al5 al5 08:01 09/12 21:50 Reassessment: No changes from previously documented assessment. Patient vc1 and/or family updated on plan of care and expected duration. Pain level reassessed. Patient is alert, oriented x 3, equal unlabored respirations, skin warm/dry/pink. vc1 09/13 08:06 09/12 21:50 Reassessment: No changes from previously documented assessment. Patient al5 and/or family updated on plan of care and expected duration. Pain level reassessed. Patient states symptoms have not improved. al5 09/13 08:07 09/12 22:50 Reassessment: No changes from previously documented assessment. Patient al5 and/or family updated on plan of care and expected duration. Pain level reassessed. notified charge nurse, moved patient from room 8 to room 4. patient placed on bipap Patient states symptoms have not improved. al5
[2024-09-13] MEDS ORDERED: AZITHROMYCIN 500 MG INJ IVPB ONE (04:25)
[2024-09-13] MEDS ORDERED: NA CHLORIDE 0.9% 250 ML ONE (04:26)
[2024-09-13] MEDS ORDERED: NA CHLORIDE 0.9% 1,000 ML ONE ×2 (04:26→05:52)
[2024-09-13] MEDS ORDERED: MIDAZOLAM HCL IN 0.9 % NACL/PF 100 MG/100 ML BAG IVPB ONE (04:50)
[2024-09-13] MEDS ORDERED: KETAMINE HCL IN 0.9 % NACL 50 MG/5 ML SYRINGE IV ONE (05:01)
--- NOTE | 2024-09-13 05:22 | RAD REPORT ---
XR CHEST 1 VIEW CLINICAL INDICATION: Post intubation COMPARISON: None FINDINGS: SUPPORT DEVICES: Endotracheal tube terminates approximately 5.7 cm above the redd. Enteric tube ter minates over left upper abdomen. LUNGS/PLEURAL SPACES: Central pulmonary vascular congestion. Bibasilar opacities, likely representing pleural effusion and atelectasis. Clinical correlation to exclude pneumonia. No pneumothorax. HEART/MEDIASTINUM: Unremarkable. BONES/UPPER ABDOMEN/SOFT TISSUES: No acute findings. Dextrocurvature of thoracolumbar spine status po st fusion. IMPRESSION: Bibasilar opacities, likely representing pleural effusion and atelectasis. Clinical correlation to ex clude pneumonia. Electronically signed by: Keisha Mccallum MD 09/13/2024 05:[address] [facility] Due to temporary technical issues with the PACS/myBestHelper reporting system, reports are being ericka d by the in-house radiologist without review as a courtesy to ensure prompt reporting the interpreting radiologist is fully responsible for the content of the report. Transcribed Date/Time: 09/13/2024 5:22 AM
[2024-09-13] MEDS ORDERED: NOREPINEPHRINE BITARTRATE/D5W 4 MG/250 ML KIT IV ONE (06:06)
[2024-09-13 06:10] VITALS: O2SAT 96
[2024-09-13 06:16] LABS: Arterial Blood Carboxyhemoglob 0.9 % (0-1.5); Blood Gas Oxyhemoglobin 93.9 % (94-97); Blood O2 Saturation 96.6 % (92-98.5)
[2024-09-13 11:15] VITALS: BP 156/90; TEMP 97.3
== END 2024-09-13 07:56 ==
LOC: ER 20:35
DX: J96.91 Respiratory failure, unspecified with hypoxia (principal); A41.9 Sepsis, unspecified organism; J15.9 Unspecified bacterial pneumonia; Z11.52 Encounter for screening for COVID-19
CPT/HCPCS: 31500; 36415; 36556; 36600; 43753; 51702; 71045; 80053; 82805; 83605; 85025; 85610; 85730; 87040; 87804; 87811; 93005; 94002; 94640; 94660; 94760; 99285; J0696; J2250; J2704; J2919; J7030; J7050; J7613; J7614; J7644